=== PATIENT | female | born 1950 | race Two or more races ===

== ENCOUNTER → 2024-11-28 | Outpatient (CLI) | payer OTHER, MEDICAID ==
[~2024-11-28] MED LIST: ALBUTEROL SULF 2.5 MG/0.5ML(0.5%) NEB SOLN ONE; ASPI-498 OR; ATOR-507 PO; BACL10TA PO; DRON400T PO; DULO30CA PO; ERGO500086 PO; FURO1TAB31 PO; LEVO25TA6 PO; METF-370 PO; PANT40TA2 PO; POTA-180 PO; SACU1TAB PO
== END | disposition home or self-care (01) ==
LOC: RT 10:32
PROVIDERS: ATTEND Internal Medicine Pulmonary Disease
DX: J84.10 Pulmonary fibrosis, unspecified (principal); R06.09 Other forms of dyspnea
CPT/HCPCS: 94060; 94618; 94727; 94729

== ENCOUNTER 2025-04-25 20:21 | Inpatient (IN) | payer OTHER, MEDICAID ==
[~2025-04-25] VITALS: Ht 149.9 cm; Wt 57.5 kg
[~2025-04-25 20:21] MED LIST changes: -ALBUTEROL SULF 2.5 MG/0.5ML(0.5%) NEB SOLN ONE
--- NOTE | 2025-04-25 20:48 | ED.PDOC ---
HPI Comments 74-year-old female with a history of chronic respiratory failure due to COVID related lung disease on 2 L home O2, diabetes, thyroid disease, osteoporosis, hypertension, dyslipidemia and PA, referred by urgent care for evaluation of chest pain, shortness of breath and cough that started around 15 30 today, associated with low-grade fever. Pain is localized to the retrosternal area, described as dull/pressure-like and sharp when coughing, associated with shortness of breath, dyspnea on exertion, and oxygen saturation of 87% at urgent care. Patient denies sick contacts, nausea, vomiting, diaphoresis or edema. She states she was tested for COVID at the urgent care and was told the test was negative. Chief Complaint: Chest Pain Time Seen by MD: 20:45 Primary Care Provider: PERNELL Reviewed Notes: Nurses Notes, Medications, Allergies Allergies: Coded Allergies: Ceftriaxone (Unverified Allergy, Severe, 07/24/24) Codeine (Unverified Allergy, Severe, 07/24/24) Levofloxacin (Unverified Allergy, Severe, 07/24/24) Home Meds Reported Medications Levothyroxine Sodium (Levothyroxine Sodium) 25 Mcg Tab, 75 MCG PO QAM for 90 Days, #90 07/27/24 Sacubitril-Valsartan (Entresto 24-26 mg) 1 Tab Tab, 1 TAB PO DAILY for 90 Days, #85 07/27/24 Dronedarone Hydrochloride (Multaq) 400 Mg Tab, 1 TAB PO BID for 90 Days, #180 07/27/24 Duloxetine Hcl (Cymbalta) 30 Mg Cap, 1 CAP PO DAILY for 90 Days, #90 07/27/24 Ergocalciferol (Vitamin D (Ergocalciferol) 50,000 Unit Cap, 1 CAP PO QWEEKLY for 84 Days, #12 07/27/24 Pantoprazole Sodium Sesquihydr (Protonix) 40 Mg Tab, 1 TAB PO DAILY for 90 Days, #90 07/27/24 Metformin Hydrochloride (Metformin Hcl) 500 Mg Tab, 1 TAB PO BID for 90 Days, #180 07/27/24 Aspirin (ASPIRIN 81) 81 Mg Tab, 81 MG OR, TAB 07/25/24 Furosemide (Lasix) 40 Mg Tab, 40 MG PO for 1 Day, TAB 07/25/24 Baclofen (Baclofen) 10 Mg Tab, 10 MG PO Q8HP PRN for FOR CHEST PAIN for 30 Days, MG 07/25/24 Atorvastatin Calcium (Lipitor) 40 Mg Tab, 40 MG PO for 1 Day, TAB 07/25/24 Potassium Chloride (Potassium Chloride ER) 20 Meq Tab, 20 MEQ PO for 1 Day, TAB 07/25/24 Information Source: Patient, Relative (Child) Mode of Arrival: Ambulatory Severity: Moderate Timing: Hours Duration: Since onset Prehospital treatment: None Location: Substernal Radiation: No Radiation Onset: At Rest Cardiac Risk Factors: Diabetes PE Risk Factors: None History of: None Modifying Factors: Nothing Associated Signs and Symptoms: SOB Past Medical History PAST MEDICAL HISTORY: Angina, Arthritis, CHF, CVA, DM, High Lipids, HTN, PA, Thyroid Past Medical History (Other): Chronic respiratory failure due to COVID pneumonia Surgical History: Appendectomy, Cholecystectomy Surgical History (Other): RIGHT KNEE REPLACEMENT [employer]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 History: Denies all [employer]ATIONAL [employer]OVER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 Hx Family History Family History: Reviewed,noncontributory to illness, Unknown Social History Smoker: Non-Smoker Alcohol: Denies ETOH Use Drugs: Denies Drug Use Lives In: Home Constitutional: reports: fever; denies: chills, diaphoresis, fatigue, malaise, sweats, weakness, others EENTM: reports: nose congestion; denies: blurred vision, double vision, ear bleeding, ear discharge, ear drainage, ear pain, ear ringing, eye pain, eye redness, hearing loss, mouth pain, mouth swelling, nasal discharge, nose bleeding, nose pain, photophobia, tearing, throat pain, throat swelling, voice changes, others Respiratory: reports: cough, shortness of breath; denies: hemoptysis, orthopnea, SOB at rest, SOB with excertion, stridor, wheezing, others Cardiovascular: reports: chest pain; denies: dizzy spells, diaphoresis, Dyspnea on exertion, edema, irregular heart beat, left arm pain, lightheadedness, palpitations, PND, syncope, others Gastrointestinal: denies: abdomen distended, abdominal pain, blood streaked bowels, constipated, diarrhea, dysphagia, difficulty swallowing, hematemesis, melena, nausea, poor appetite, poor fluid intake, rectal bleeding, rectal pain, vomiting, others Genitourinary: denies: abnormal vagina bleeding, burning, dyspareunia, dysuria, flank pain, frequency, hematuria, incontinence, pain, , vagina discharge, urgency, others Neurological: denies: dizziness, fainting, headache, left sided numbness, left sided weakness, numbness, paresthesia, pre-existing deficit, right sided numbness, right sided weakness, seizure, speech problems, tingling, tremors, weakness, others Musculoskeletal: denies: back pain, gout, joint pain, joint swelling, muscle pain, muscle stiffness, neck pain, others Integumetry: denies: bruises, change in color, change in hair/nails, dryness, laceration, lesions, lumps, rash, wounds, others Allergic/Immunocompromised: denies: Difficulty Healing, Frequent Infections, Hives, Itching, others Hematologic/Lymphatic: denies: anemia, blood clots, easy bleeding, easy bruising, swollen glands, others Endocrine: denies: excessive hunger, excessive sweating, excessive thirst, excessive urination, flushing, intolerance to cold, intolerance to heat, unexplained weight gain, unexplained weight loss, others Psychiatric: denies: anxiety, bipolar disorder, depression, hopeless, panic disorder, schizophrenia, sleepless, suicidal, others All Other Systems: Reviewed and Negative Physical Exam General Appearance: Mild Distress HEENT: Other (Pupils and face symmetric. Moist mucous membranes.) Neck: Full Range of Motion, Normal Inspection Respiratory: Decreased Breath Sounds, No Accessory Muscle Use, Respiratory Distress (Mildly tachypneic) Cardiovascular: No Edema, No Murmur, Tachycardia Breast Exam: Deferred Gastrointestinal: Non Tender, Soft Genitalia: Deferred Pelvic: Deferred Rectal: Deferred Extremities: Normal inspection, Normal range of motion, Non-tender, No pedal edema Neurologic: Alert (Oriented x4), Normal Affect, Normal Mood, Other (Ambulatory. No gross focal deficit.) Cerebellar Function: NOT DONE Reflexes: NOT DONE Skin: Dry, Normal Color, Warm Lymphatic: NOT DONE EKG EKG : Comments Sinus rhythm, rate 97, normal intervals, left axis deviation, old inferior infarct, no ST/T change. Was a procedure done? Was a procedure done?: No CP Differential Dx Differential Diagnosis: Angina, PA, Pulmonary Embolus Differential Diagnosis: CHF Differential Diagnosis: Chest Wall Pain, Esophageal reflux/spasm, Gastritis, Pericarditis, Pneumonia, Other (Bronchitis, asthma/COPD, among others) X-Ray, Labs, Meds, VS Vital Signs Date Time Temp Pulse Resp B/P (MAP) Pulse Ox O2 Delivery O2 Flow Rate FiO2 04/25/25 20:42 97 04/25/25 20:24 99.9 111 20 167/76 98 99.9 Lab Test 04/25/25 20:50 Range/Units White Blood Count 11.1 H 4.4-10.8 10^3/uL Red Blood Count 4.64 4.0-5.20 10^6/uL Hemoglobin 13.7 12.2-16.2 g/dL Hematocrit 41.0 36.0-46.0 % Mean Corpuscular Volume 88.4 80.0-100.0 fL Mean Corpuscular Hemoglobin 29.5 28.0-32.0 pg Mean Corpuscular Hemoglobin Concent 33.4 32.0-36.0 g/dL Red Cell Distribution Width 14.1 11.8-14.3 % Platelet Count 182 140-450 10^3/uL Mean Platelet Volume 8.9 6.9-10.8 fL Neutrophils (%) (Auto) 66.2 37.0-80.0 % Lymphocytes (%) (Auto) 19.1 10.0-50.0 % Monocytes (%) (Auto) 9.2 0.0-12.0 % Eosinophils (%) (Auto) 4.4 0.0-7.0 % Basophils (%) (Auto) 1.1 0.0-2.0 % Neutrophils # (Auto) 7.4 1.6-8.6 10 ^3/uL Lymphocytes # (Auto) 2.1 0.4-5.4 10 ^3/uL Monocytes # (Auto) 1.0 0-1.3 10 ^3/uL Eosinophils # (Auto) 0.5 0-0.8 10 ^3/uL Basophils # (Auto) 0.1 0-0.2 10 ^3/uL Nucleated Red Blood Cells 0.0 % Sodium Level 140 136-145 mmol/L Potassium Level 5.0 3.5-5.1 mmol/L Chloride Level 105 98-107 mmol/L Carbon Dioxide Level 26 20-31 mmol/L Anion Gap 9 5-15 Blood Urea Nitrogen 13 9-23 mg/dL Creatinine 0.76 0.550-1.02 mg/dL Glomerular Filtration Rate Calc 81 >90 mL/min BUN/Creatinine Ratio 17.1 10.0-20.0 Serum Glucose 102 74-106 mg/dL Calcium Level 8.7 8.7-10.4 mg/dL Troponin I High Sensitivity 3 L </=34 ng/L B-Type Natriuretic Peptide 30.81 0-100 pg/mL Current Medications Medications (Trade) Dose Ordered Sig/Page Route Start Time Stop Time Status Last Admin Albuterol (Ventolin Medneb) 5 mg ONCE ONCE NEB 04/25/25 21:00 04/25/25 21:01 DC 04/25/25 21:34 Ipratropium Addison (Atrovent Medneb) 0.5 mg ONCE ONCE NEB 04/25/25 21:00 04/25/25 21:01 DC 04/25/25 21:35 Methylprednisolone Sodium Succinate (Solu Medrol) 125 mg ONCE ONCE IV 04/25/25 21:00 04/25/25 21:01 DC 04/25/25 21:46 Aspirin 325 mg ONCE ONCE PO 04/25/25 21:00 04/25/25 21:01 DC 04/25/25 21:46 Acetaminophen/ Hydrocodone Bitart ([place] 5/325MG Tab) 1 tab ONCE ONCE PO 04/25/25 21:00 04/25/25 21:01 DC 04/25/25 21:46 PROCEDURE(s): CXRP - CHEST PORTABLE REASON: cp ORDER NUMBER(s): [id number], ACCESSION NUMBER(s): [id number] CHEST RADIOGRAPH Indication: cp Technique: Single frontal view of the chest was obtained Comparison: CT CHEST WITHOUT CONTRAST on DOS: 07/27/24, XY CHEST PORTABLE on DOS: 07/24/24, CXR2 on DOS: 06/16/22 FINDINGS: Lines and Tubes: None Lungs: Bronchovascular crowding due to low lung volumes with mild diffuse interstitial prominence. Pleura: No effusion. No pneumothorax. Cardiomediastinal contours: Heart size is within normal limits moderate athero sclerotic calcification and uncoiling of the aorta. Bones: No acute osseous abnormality. IMPRESSION: Diffuse interstitial prominence which may be from fibrotic changes when correlated with CT chest of Underlying infectious process can not be ex cluded. X-Ray, Labs, Meds, VS Comment 74-year-old female with a history of chronic respiratory failure due to COVID related lung disease on 2 L home O2, diabetes, thyroid disease, osteoporosis, hypertension, dyslipidemia and PA, referred by urgent care for evaluation of chest pain, shortness of breath, dyspnea on exertion and low-grade fever Vitals remarkable for temperature 99.9, heart rate 111, BP 167/76 Exam remarkable for mild respiratory distress, diminished breath sounds, tachycardia Rhythm strip independently interpreted by me: Sinus rhythm, rate 97, no ectopy. Chest x-ray IMPRESSION: Diffuse interstitial prominence which may be from fibrotic changes when correlated with CT chest of Underlying infectious process can not be excluded. CBC remarkable for WBC 11.1, basic metabolic panel, BNP and troponin unremarkable. Lactate pending. Patient treated with the following in the ED: Albuterol 5 mg/Atrovent 0.5 mg nebulized, Solu-Medrol 125 mg IV, Zosyn 4.5 g IV On re-evaluation, respiratory status has improved. Patient is saturating normally on 2 L nasal cannula. Plan is to admit the patient for IV antibiotics and respiratory support as needed. Time of 1ST Reevaluation: 21:15 Reevaluation 1ST: Unchanged Patient Education/Counseling: Diagnosis, Treatment Family Education/Counseling: Diagnosis, Treatment SEPSIS Sepsis Screen Date sepsis recognized/suspect: Apr 25, 2025 Time Sepsis recognized/suspect: 2030 Recent Procedure: No On Antibiotic Therapy: No Respiratory Rate >20: No Heart Rate >90: Yes Temp<36 C (96.8 F) or >38.3 C: No SBP <90 or MAP <65 mmHG: No New Acute Mental Status Change: No Is the patient on CPAP, BIPAP,: No SEPSIS EXCLUSION NOTE: Sepsis Exclusion Note: Patient presents with SIRS criteria, but the SIRS response is attributed to [shortness of breath and pain ], not sepsis. Sepsis bundle is not initiated at this time, due to this reason. Further management will focus on the treatment of the above condition (s). Physician Orders Electrocardigram (04/25/25 20:24) Chest Portable (04/25/25 20:35) Urinalysis (04/25/25 20:35) Troponin-I Hs (04/25/25 21:35) Troponin-I Hs (04/25/25 23:35) Rapid Influenza A&B (04/25/25 21:29) Covid19 Antigen Heydi (04/25/25 ) Vital Signs Date Time Temp Pulse Resp B/P (MAP) Pulse Ox O2 Delivery O2 Flow Rate FiO2 04/25/25 20:42 97 04/25/25 20:24 99.9 111 20 167/76 98 99.9 Laboratory Tests Test 04/25/25 20:50 White Blood Count 11.1 10^3/uL (4.4-10.8) H Medications Medications Dose Ordered Sig/Page Route Start Time Stop Time Status Last Admin Dose Admin Acetaminophen/ Hydrocodone Bitart 1 tab ONCE ONCE PO 04/25/25 21:00 04/25/25 21:01 DC 04/25/25 21:46 Albuterol 5 mg ONCE ONCE NEB 04/25/25 21:00 04/25/25 21:01 DC 04/25/25 21:34 Aspirin 325 mg ONCE ONCE PO 04/25/25 21:00 04/25/25 21:01 DC 04/25/25 21:46 Ipratropium Addison 0.5 mg ONCE ONCE NEB 04/25/25 21:00 04/25/25 21:01 DC 04/25/25 21:35 Methylprednisolone Sodium Succinate 125 mg ONCE ONCE IV 04/25/25 21:00 04/25/25 21:01 DC 04/25/25 21:46 Departure 1 Departure Time of Disposition: 21:58 Impression: Primary Impression: Chest pain with high risk for cardiac etiology Additional Impressions: Pneumonia [id number] respiratory failure Disposition: ADMITTED INPATIENT Admit to: Tele Condition: Guarded Critical Care Note Critical Care Time?: No Stability Stability form required: No Heart Score Heart Score: Heart Score Response (Comments) Value History Moderate Suspicious 1 EKG Normal 0 Age >65 2 Risk Factors >3 or Hx ASHD 2 Troponin Normal limit 0 Total 5 I personally scribed for RENU MATIAS MD ([email or web address]) on 04/25/25 at 20:48. Electronically submitted by Farida Glaser ([email or web address]). I personally scribed for RENU MATIAS MD ([email or web address]) on 9/2/25 at 20:49. Electronically submitted by Farida Glaser ([email or web address]). RENU MATISA MD Apr 25, 2025 20:48
[2025-04-25 21:12] LABS: Hematocrit 41.0 % (36.0-46.0); Hemoglobin 13.7 g/dL (12.2-16.2); Mean Corpuscular Hemoglobin 29.5 pg (28.0-32.0); Mean Corpuscular Volume 88.4 fL (80.0-100.0); Nucleated Red Blood Cells % 0.0 %
[2025-04-25 21:16] LABS: Chloride 105 mmol/L (98-107); Potassium 5.0 mmol/L (3.5-5.1); Sodium 140 mmol/L (136-145)
[2025-04-25 21:17] LABS: Anion Gap 9 (5-15); Calcium 8.7 mg/dL (8.7-10.4); Carbon Dioxide 26 mmol/L (20-31)
[2025-04-25 21:22] LABS: BUN/Creatinine Ratio 17.1 (10.0-20.0); Blood Urea Nitrogen 13 mg/dL (9-23); Glucose 102 mg/dL (74-106)
[2025-04-25] MEDS: ALBUTEROL SULF 2.5 MG/0.5ML(0.5%) NEB SOLN NEB ONE (21:34)
[2025-04-25] MEDS: IPRATROPIUM BROM 0.5 MG/2.5ML INH SOL NEB ONE (21:35)
--- NOTE | 2025-04-25 21:40 | DVH ---
CHEST RADIOGRAPH Indication: cp Technique: Single frontal view of the chest was obtained Comparison: CT CHEST WITHOUT CONTRAST on DOS: 07/27/24, XY CHEST PORTABLE on DOS: 07/24/24, CXR2 on DOS : 06/16/22 FINDINGS: Lines and Tubes: None Lungs: Bronchovascular crowding due to low lung volumes with mild diffuse interstitial prominence. Pleura: No effusion. No pneumothorax. Cardiomediastinal contours: Heart size is within normal limits moderate atherosclerotic calcification and uncoiling of the aorta. Bones: No acute osseous abnormality. IMPRESSION: Diffuse interstitial prominence which may be from fibrotic changes when correlated with CT chest of 1 Underlying infectious process can not be excluded.
[2025-04-25] MEDS: methylPREDNISolone SOD SUCC 125 MG/2 ML VL IV ONE (21:46)
[2025-04-25] MEDS: HYDROcodone-ACET 5/325MG TAB PO ONE (21:46)
[2025-04-25] MEDS ORDERED: ONDANSETRON HCL 4 MG/2 ML VIAL IV PRN (22:45)
[2025-04-25] MEDS ORDERED: DOCUSATE SOD 100 MG CAP PO PRN (22:45)
[2025-04-25] MEDS ORDERED: NITROGLYCERIN 0.4 MG SL TAB SL PRN (22:45)
[2025-04-25] MEDS ORDERED: MORPHINE SULFATE INJ 2 MG/ml SYRG IV PRN ×2 (22:45)
[2025-04-26] VITALS (8 sets, daily range): BP systolic 120–140; BP diastolic 51–79; PULSE 80–97; RESP 16–20; TEMP 97.8–98.2; O2SAT 95–97
[2025-04-26 04:25] LABS: COVID19 ANTIGEN SOFIA FIA NEGATIVE (NEGATIVE)
[2025-04-26] MEDS ORDERED: METF-372 PO (05:30)
[2025-04-26] MEDS ORDERED: DULO1CAP5 PO (05:30)
[2025-04-26] MEDS ORDERED: ASPI81CH59 PO (05:30)
[2025-04-26] MEDS ORDERED: PANT40T PO (05:30)
[2025-04-26] MEDS ORDERED: FURO40TA4 PO (05:30)
[2025-04-26] MEDS ORDERED: ATOR40TA52 PO (05:30)
[2025-04-26] MEDS ORDERED: EMPA1TAB3 PO (05:30)
[2025-04-26] MEDS ORDERED: LEVO75TA6 PO (05:30)
[2025-04-26] MEDS ORDERED: HYDR-4798 PO (05:40)
[2025-04-26] MEDS ORDERED: BACL20TA PO (05:41)
--- NOTE | 2025-04-26 06:23 | DVHHPRES ---
History of Present Illness Resident Creating Document: FILOMENA WHITE RESIDENT History of Present Illness ShanaKarolina raines a 74-year-old female with past medical history of chronic respiratory failure with 2 L oxygen at home, Angina, Arthritis, CHF, CVA, DM, hyperlipidemia, HTN, [place], hypothyroidism, the ED with chief complaints of shortness of breath and cough that started yesterday, and pressure-like, salt when coughing, constant 10/10 chest pain mostly radiating to the back and left shoulder, associated with low-grade fever and feels fatigued, tired, dizzy since yesterday. Patient has lost of appetite, states that she lost lb in the last 5 months. Patient states that she had high blood pressure at home, was worried and went to urgent care where they told her to come to the ED. Patient was tested for COVID and was told was negative. Patient also complained of lower back pain, headache. Past surgical history: Appendicectomy, cholecystectomy, right knee replacement, left arm surgery Family history: Reviewed noncontributory Personal history: Denies smoking, drinking, drug use Lives with: Family PCP: [place] Review of Systems Constitutional: Yes: Weakness Eyes: No: Pain, Vision change, Conjunctivae inflammation, Eyelid inflammation, Other, Redness ENT: No: Ear pain, Ear discharge, Nose pain, Nose discharge, Nose congestion, Mouth pain, Mouth swelling, Throat pain, Throat swelling, Other Respiratory: Cough, Shortness of breath; No: Dry, SOB with excertion, Wheezing, Hemoptysis, Pleuritic Pain, Sputum, Wheezing, Other Cardiovascular: Chest Pain; No: Palpitations, Orthopnea, Paroxysmal Noc. Dyspnea, Edema, Lt Headedness, Other Gastrointestinal: No: Nausea, Vomiting, Abdominal Pain, Diarrhea, Constipation, Melena, Hematochezia, Other Genitourinary: No Dysuria, No Frequency, No Incontinence, No Hematuria, No Retention, No Other Musculoskeletal: No: other, neck pain, shoulder pain, arm pain, back pain, hand pain, leg pain, foot pain Skin: No: Rash, Lesions, Jaundice, Bruising, Other Neurological: No: Weakness, Numbness, Incoordination, Change in speech, Confusion, Seizures, Other Allergies: Coded Allergies: Ceftriaxone (Unverified Allergy, Severe, 07/24/24) Codeine (Unverified Allergy, Severe, 07/24/24) Levofloxacin (Unverified Allergy, Severe, 07/24/24) Medications Current Medications Medications Dose Ordered Sig/Page Route Start Time Stop Time Status Last Admin Dose Admin Acetaminophen/ Hydrocodone Bitart 1 tab Q4HP PRN PO 04/25/25 22:45 Ondansetron HCl 4 mg Q4HP PRN IV 04/25/25 22:45 Docusate Sodium 100 mg BIDPRN PRN PO 04/25/25 22:45 Morphine Sulfate 2 mg Q4HPRN PRN IV 04/25/25 22:45 Nitroglycerin 0.4 mg Q5MINP PRN SL 04/25/25 22:45 Morphine Sulfate 2 mg Q30M PRN IV 04/25/25 22:45 Aspirin 81 mg DAILY PO 04/26/25 10:00 Furosemide 40 mg DAILY PO 04/26/25 10:00 Levothyroxine Sodium 75 mcg QAM PO 04/26/25 07:00 Pantoprazole Sodium 40 mg QAM PO 04/26/25 07:00 Sacubitril/ Valsartan 1 tab DAILY PO 04/26/25 10:00 Atorvastatin Calcium 40 mg HS PO 04/26/25 22:00 Exam Vital Signs Vital Signs Date Time Temp Pulse Resp B/P (MAP) Pulse Ox O2 Delivery O2 Flow Rate FiO2 04/26/25 05:05 88 18 97 Nasal Cannula* 2 28 04/25/25 21:52 99.0 152/59 (90) 99.0 Exam General: Patient alert and oriented in person, place and time. Patient following commands. In moderate distress HEENT: Normocephalic, atraumatic, moist mucous membranes Respiratory/pulmonary: Crackles on the right side, decreased breath sounds Cardiovascular: Normal heart sounds S1 and S2 with no associated murmurs Abdomen: Abdomen nondistended, there is no pain to palpation in any of the abdominal quadrants, no palpable masses. Extremities: There is no peripheral edema present at the lower extremities. Peripheral Pulses: 3+ Radial (R). 3+ Radial (L). 3+ Dorsalis pedis (R). 3+ Dorsalis pedis(L) Skin: No rashes or pruritus, there is no sacral edema present at this time. Neurological: Intact cranial nerves with no focal neurologic deficits Psych, mood: Normal Labs/Xrays Labs Test 04/26/25 03:00 04/26/25 02:46 04/25/25 22:19 04/25/25 21:53 Range/Units Influenza Type A Antigen Negative Negative Influenza Type B Antigen Negative Negative SARS-CoV-2 Antigen (Rapid) Negative NEGATIVE POC Glucose 197 H 70-106 mg/dl Lactic Acid Level 1.3 0.4-2.0 mmol/L Troponin I High Sensitivity 3 L </=34 ng/L Test 04/25/25 20:50 Range/Units White Blood Count 11.1 H 4.4-10.8 10^3/uL Red Blood Count 4.64 4.0-5.20 10^6/uL Hemoglobin 13.7 12.2-16.2 g/dL Hematocrit 41.0 36.0-46.0 % Mean Corpuscular Volume 88.4 80.0-100.0 fL Mean Corpuscular Hemoglobin 29.5 28.0-32.0 pg Mean Corpuscular Hemoglobin Concent 33.4 32.0-36.0 g/dL Red Cell Distribution Width 14.1 11.8-14.3 % Platelet Count 182 140-450 10^3/uL Mean Platelet Volume 8.9 6.9-10.8 fL Neutrophils (%) (Auto) 66.2 37.0-80.0 % Lymphocytes (%) (Auto) 19.1 10.0-50.0 % Monocytes (%) (Auto) 9.2 0.0-12.0 % Eosinophils (%) (Auto) 4.4 0.0-7.0 % Basophils (%) (Auto) 1.1 0.0-2.0 % Neutrophils # (Auto) 7.4 1.6-8.6 10 ^3/uL Lymphocytes # (Auto) 2.1 0.4-5.4 10 ^3/uL Monocytes # (Auto) 1.0 0-1.3 10 ^3/uL Eosinophils # (Auto) 0.5 0-0.8 10 ^3/uL Basophils # (Auto) 0.1 0-0.2 10 ^3/uL Nucleated Red Blood Cells 0.0 % Sodium Level 140 136-145 mmol/L Potassium Level 5.0 3.5-5.1 mmol/L Chloride Level 105 98-107 mmol/L Carbon Dioxide Level 26 20-31 mmol/L Anion Gap 9 5-15 Blood Urea Nitrogen 13 9-23 mg/dL Creatinine 0.76 0.550-1.02 mg/dL Glomerular Filtration Rate Calc 81 >90 mL/min BUN/Creatinine Ratio 17.1 10.0-20.0 Serum Glucose 102 74-106 mg/dL Calcium Level 8.7 8.7-10.4 mg/dL B-Type Natriuretic Peptide 30.81 0-100 pg/mL SEPSIS Sepsis Screen Date sepsis recognized/suspect: Apr 25, 2025 Time Sepsis recognized/suspect: 2030 Recent Procedure: No On Antibiotic Therapy: No Respiratory Rate >20: No Heart Rate >90: Yes Temp<36 C (96.8 F) or >38.3 C: No SBP <90 or MAP <65 mmHG: No New Acute Mental Status Change: No Is the patient on CPAP, BIPAP,: No Physician Orders Admit (04/25/25 22:36) Allergies (04/25/25 22:36) Code Status (04/25/25:36) Oxygen Per Hour (04/25/25:36) Hydrocodone-Acet 5/325mg Tab ([place] 5/32 (04/25/25 22:45) Ondansetron Hcl (Zofran) (04/25/25 22:45) Docusate Sodium Capsule (Colace Capsule) (04/25/25 22:45) Complete Blood Count (04/26/25 04:00) Comprehensive Metabolic Panel (04/26/25 04:00) Condition: Serious (04/25/25 22:36) Bedrest With Bathroom Privileg (04/25/25 22:36) Morphine Sulfate Injection (04/25/25 22:45) Nitroglycerin Sublingual (Ntrostat Subli (04/25/25 22:45) Morphine Sulfate Injection (04/25/25 22:45) Oxygen By Nasal Cannula (04/25/25:36) Stat Ekg For Chest Pain (04/25/25:36) Notify Of Changes From Base (04/25/25 22:36) Application Security Engineer For 24 Hours (04/25/25 22:36) Emergency Dysrhythmia Protocol (04/25/25 22:36) Rhythm Strips Once Every Shift (04/25/25 22:36) Prothrombin Time W/ Inr (04/26/25 05:58) Drug Screen (04/26/25 05:58) Hemoglobin A1c (04/26/25 05:58) Hepatic Panel (04/26/25 05:58) Lipid Panel (04/26/25 05:58) Thyroid Stimulating Hormone (04/26/25 05:58) Cardiac Diet-2gna,Lofat,Lochol (04/26/25 Breakfast) Aspirin Enteric Coated Tablet (Ecotrin E (04/26/25 10:00) Furosemide Tablet (Lasix Tablet) (04/26/25 10:00) Levothyroxine Tablet (Synthroid Tablet) (04/26/25 07:00) Pantoprazole Tablet (Protonix Tablet) (04/26/25 07:00) Sacubitril-Valsartan (Entresto 24-26 Mg (04/26/25 10:00) Atorvastatin (Lipitor) (04/26/25 22:00) Erythrocyte Sedimentation Rate (04/26/25 06:17) C-Reactive Protein (04/26/25 06:17) D-Dimer (04/26/25 06:17) Echo 2d Mode Cardiac Dop (04/26/25 06:17) Vital Signs Date Time Temp Pulse Resp B/P (MAP) Pulse Ox O2 Delivery O2 Flow Rate FiO2 04/26/25 05:05 88 18 97 Nasal Cannula* 2 28 Laboratory Tests Test 04/25/25 20:50 04/25/25 22:19 White Blood Count 11.1 10^3/uL (4.4-10.8) H Lactic Acid Level 1.3 mmol/L (0.4-2.0) Medications Medications Dose Ordered Sig/Page Route Start Time Stop Time Status Last Admin Dose Admin Acetaminophen/ Hydrocodone Bitart 1 tab ONCE ONCE PO 04/25/25 21:00 04/25/25 21:01 DC 04/25/25 21:46 1 TAB Albuterol 5 mg ONCE ONCE NEB 04/25/25 21:00 04/25/25 21:01 DC 04/25/25 21:34 5 MG Aspirin 325 mg ONCE ONCE PO 04/25/25 21:00 04/25/25 21:01 DC 04/25/25 21:46 325 MG Ipratropium [place] 0.5 mg ONCE ONCE NEB 04/25/25 21:00 04/25/25 21:01 DC 04/25/25 21:35 0.5 MG Methylprednisolone Sodium Succinate 125 mg ONCE ONCE IV 04/25/25 21:00 04/25/25 21:01 DC 04/25/25 21:46 125 MG Assessment/Plan Assessment/Plan # Acute on chronic respiratory failure # SIRS likely due to Gram positive/Gram-negative pneumonia: Azithromycin # HFrEF # Chronic respiratory failure due to COVID pneumonia: On 2 L oxygen at home # Essential hypertension: Continue home medication # history of Stroke # history of osteoporosis , osteoarthritis # Diabetes mellitus HbA1c # History of hypothyroidism: Continue home meds PPI prophylaxis: Pantoprazole 40 mg DVT prophylaxis: Not indicated Goals of care addressed with the patient for more than 35 minutes: Full code status Case discussed with Dr. Castillo , patient and nurse Plan discussed with: Patient My Orders Orders - FILOMENA WHITE RESIDENT Procedure Category Date Status Time Admit ADMIT 04/25/25 Transmitted 22:36 Allergies AAMIR 04/25/25 In Process 22:36 Code Status CODE 04/25/25 Transmitted 22:36 Oxygen Per Hour RT 04/25/25 Transmitted 22:36 Hydrocodone-Acet PHA 04/25/25 In Process 5/325mg Tab ([place] 22:45 Ondansetron Hcl PHA 04/25/25 In Process (Zofran) 22:45 Docusate Sodium PHA 04/25/25 In Process Capsule (Colace 22:45 Complete Blood Count LAB 04/26/25 Logged 04:00 Comprehensive LAB 04/26/25 Logged Metabolic Panel 04:00 Condition: Serious AAMIR 04/25/25 In Process 22:36 Bedrest With Bathroom AAMIR 04/25/25 In Process Privileg 22:36 Morphine Sulfate PHA 04/25/25 In Process Injection 22:45 Nitroglycerin PHA 04/25/25 In Process Sublingual (Ntrostat 22:45 Morphine Sulfate PHA 04/25/25 In Process Injection 22:45 Oxygen By Nasal RT 04/25/25 Transmitted Cannula 22:36 Stat Ekg For Chest AAMIR 04/25/25 In Process Pain 22:36 Notify Of Changes AAMIR 04/25/25 In Process From Base 22:36 Application Security Engineer For AAMIR 04/25/25 In Process 24 Hours 22:36 Emergency Dysrhythmia AAMIR 04/25/25 In Process Protocol 22:36 Rhythm Strips Once AAMIR 04/25/25 In Process Every Shift 22:36 Prothrombin Time W/ LAB 04/26/25 Logged INR 05:58 Drug Screen LAB 04/26/25 Logged 05:58 Hemoglobin A1c LAB 04/26/25 Logged 05:58 Hepatic Panel LAB 04/26/25 Logged 05:58 Lipid Panel LAB 04/26/25 Logged 05:58 Thyroid Stimulating LAB 04/26/25 Logged Hormone 05:58 Cardiac DIET 04/26/25 Transmitted Diet-2gna,Lofat,Lochol Breakfast Aspirin Enteric PHA 04/26/25 In Process Coated Tablet 10:00 Furosemide Tablet PHA 04/26/25 In Process (Lasix Tablet) 10:00 Levothyroxine Tablet PHA 04/26/25 In Process (Synthroid Tablet) 07:00 Pantoprazole Tablet PHA 04/26/25 In Process (Protonix Tablet) 07:00 Sacubitril-Valsartan PHA 04/26/25 In Process (Entresto 24-26 Mg 10:00 Atorvastatin (Lipitor) PHA 04/26/25 In Process 22:00 Erythrocyte LAB 04/26/25 Logged Sedimentation Rate 06:17 C-Reactive Protein LAB 04/26/25 Logged 06:17 D-Dimer LAB 04/26/25 Logged 06:17 Echo 2d Mode Cardiac US 04/26/25 Logged DOP 06:17 Date of Service: Apr 26, 2025 Billing Provider: FILOMENA WHITE Common Visit Codes: [id number] INP/OBS CARE (HIGH) Secondary Visit Codes: [id number] CARE PLAN 30 MINUTES FILOMENA WHITE Apr 26, 2025 06:23
[2025-04-26] MEDS: LEVOTHYROXINE SODIUM 25 MCG TAB PO SCH (06:33)
[2025-04-26] MEDS: PANTOPRAZOLE 40 MG TAB PO SCH (06:33)
[2025-04-26 07:59] LABS: Hematocrit 40.1 % (36.0-46.0); Hemoglobin 13.7 g/dL (12.2-16.2); Mean Corpuscular Hemoglobin 30.0 pg (28.0-32.0); Mean Corpuscular Volume 87.9 fL (80.0-100.0); Nucleated Red Blood Cells % 0.0 %
[2025-04-26 08:02] LABS: Alanine Aminotransferase 19 U/L (7-40); Albumin 4.1 g/dL (3.2-4.8); Alkaline Phosphatase 69 U/L (46-116); Anion Gap 10 (5-15); BUN/Creatinine Ratio 20.0 (10.0-20.0); Bilirubin, Total 0.4 mg/dL (0.2-1.0); Blood Urea Nitrogen 15 mg/dL (9-23); Calcium 8.7 mg/dL (8.7-10.4); Carbon Dioxide 24 mmol/L (20-31); Chloride 104 mmol/L (98-107); Potassium 4.5 mmol/L (3.5-5.1); Sodium 138 mmol/L (136-145); Total Protein 7.3 g/dL (5.7-8.2)
[2025-04-26 08:05] LABS: Glucose 180 mg/dL (74-106)
[2025-04-26 08:07] LABS: INR 1.07 (0.9-1.15); Prothrombin Time 11.3 sec (9.3-11.8)
[2025-04-26 08:17] LABS: Alanine Aminotransferase 18.0 U/L (7-40); Albumin 4.1 g/dL (3.2-4.8); Alkaline Phosphatase 69.0 U/L (46-116); Bilirubin, Direct 0.1 mg/dL (<0.3); Bilirubin, Total 0.4 mg/dL (0.2-1.0); Cholesterol 145.0 mg/dL (< 200); Total Protein 7.2 g/dL (5.7-8.2); Triglycerides 80.0 mg/dL (< 150)
[2025-04-26 08:22] LABS: HDL Cholesterol 63.0 mg/dL (40-59)
[2025-04-26] MEDS: ASPirin-EC 81 mg tab PO SCH (10:05)
[2025-04-26] MEDS: SACUBITRIL-VALSARTAN 24mg/26mg TAB PO SCH (10:06)
[2025-04-26] MEDS: FUROSEMIDE 40 MG TAB PO SCH (10:06)
[2025-04-26 10:49] LABS: Urine Budding Yeast OCCASIONAL /hpf (None Seen); Urine Protein, UAD Negative (Negative)
[2025-04-26 10:59] LABS: Amphetamine Screen, Urine Neg (NEGATIVE); Barbiturate Scree,Urine Neg (NEGATIVE); Benzodiazephine Screen, Urine Neg (NEGATIVE); Cocaine Screen, Urine Neg (NEGATIVE); Opiate Scree,Urine Neg (NEGATIVE); Phencyclidine Screen, Urine Neg (NEGATIVE)
[2025-04-26 11:00] LABS: Cannabinoid Screen, Urine Neg (NEGATIVE)
--- NOTE | 2025-04-26 14:05 | ECG ---
[facility] Test Date: 2025-04-25 Test Time: 20:42:11 Pat Name: MICHELLE VILLARREAL Department: ED Room: [facility]0T B Gender: F Casing Inspector: LUPILLO : 1950 Requested By: EMERGENCY EMERGENCY Order Number: [id number] Reading MD: Napoleon Quan Measurements Intervals [place] Rate: 97 P: 62 MA: 126 QRS: -34 QRSD: 79 T: 36 QT: 320 QTc: 407 Interpretive Statements Sinus rhythm Left axis deviation Low voltage, precordial leads Electronically Signed On 04-27-2025 17:01:38 PDT by Napoleon Quan Please click the below link to view image of tracing.
[2025-04-26] MEDS ORDERED: DEXTROSE (50%) 50ML SYRG IV PRN (16:15)
[2025-04-26] MEDS ORDERED: guaiFENesin-DM 100/10mg/5ml SYR PO PRN (16:15)
[2025-04-26] MEDS: HYDROcodone-ACET 5/325MG TAB PO PRN (16:18)
[2025-04-26] MEDS: ACCU-CHEK COMFORT CURVE STRIP VI SCH (16:21)
[2025-04-26] MEDS: guaiFENesin-DM 100/10mg/5ml SYR PO PRN (16:28)
[2025-04-26] MEDS: InsuLIN REG 1unit/0.01ml Soln (100units/ml) SC SCH (16:31)
[2025-04-26] MEDS: ATORVASTATIN 20 MG TAB PO SCH (21:48)
[2025-04-27] VITALS (8 sets, daily range): BP systolic 98–117; BP diastolic 50–58; PULSE 75–105; RESP 16–20; TEMP 97.6–98.3; O2SAT 95–100
--- NOTE | 2025-04-27 11:50 | DVHPN2 ---
Subjective The patient is seen and examined at bedside. Son at bedside. The patient complained of chest pain in the middle of her chest. The patient complain of shortness for breath. The patient states she had been losing weight for two months. She lost about 9 lb. She said her development technician, Dr. Jacob about to send her for CT scan however she had not have chance to do so. Reviewed: Care Plan, H&P, Labs, Medications, Previous Orders, Radiology Changes from previous H/P or p: No Changes Eyes: No Pain, No Vision change, No Conjunctivae inflammation, No Eyelid inflammation, No Other, No Redness ENT: No Ear pain, No Ear discharge, No Nose pain, No Nose discharge, No Nose congestion, No Mouth pain, No Mouth swelling, No Throat pain, No Throat swelling, No Other Cardiovascular: Chest Pain; No Palpitations, No Orthopnea, No Paroxysmal Noc. Dyspnea, No Edema, No Lt Headedness, No Other Respiratory: Cough; No Dry; Shortness of breath; No SOB with excertion, No Wheezing, No Hemoptysis, No Pleuritic Pain, No Sputum, No Other Gastrointestinal: No Nausea, No Vomiting, No Abdominal Pain, No Diarrhea, No Constipation, No Melena, No Hematochezia, No Other Genitourinary: No Dysuria, No Frequency, No Incontinence, No Hematuria, No Retention, No Other Musculoskeletal: No other, No neck pain, No shoulder pain, No arm pain, No back pain, No hand pain, No leg pain, No foot pain Skin: No Rash, No Lesions, No Jaundice, No Bruising, No Other Objective Vitals Vital Signs Date Time Temp Pulse Resp B/P (MAP) Pulse Ox O2 Delivery O2 Flow Rate FiO2 04/27/25 09:11 104/55 04/27/25 08:00 75 04/27/25 08:00 16 Nasal Cannula* 2 28 04/27/25 05:00 97.8 100 97.8 Intake/Output Intake and Output 04/27/25 07:00 Intake Total 1600 ml Balance 1600 ml Intake Oral 1500 ml IV Total 100 ml # Voids 10 General Appearance: Alert, Oriented X3, Cooperative, No acute distress HEENT: Atraumatic, PERRLA, EOMI, Mucous membr. moist/pink Neck: Supple Lungs: Clear to auscultation, Normal air movement Cardiovascular: Regular rate, Normal S1, Normal S2, No murmurs, Gallops, Rubs Abdomen: Normal bowel sounds, Soft, No tenderness Neuro: Cranial nerves 3-12 NL Psych/Mental Status: Mental status NL Medications Current Medications Medications Dose Ordered Sig/Page Route Start Time Stop Time Status Last Admin Dose Admin Acetaminophen/ Hydrocodone Bitart 1 tab Q4HP PRN PO 04/25/25 22:45 04/26/25 16:18 1 TAB Ondansetron HCl 4 mg Q4HP PRN IV 04/25/25 22:45 Docusate Sodium 100 mg BIDPRN PRN PO 04/25/25 22:45 Morphine Sulfate 2 mg Q4HPRN PRN IV 04/25/25 22:45 Nitroglycerin 0.4 mg Q5MINP PRN SL 04/25/25 22:45 Morphine Sulfate 2 mg Q30M PRN IV 04/25/25 22:45 Aspirin 81 mg DAILY PO 04/26/25 10:00 04/27/25 09:10 81 MG Furosemide 40 mg DAILY PO 04/26/25 10:00 04/27/25 09:11 40 MG Levothyroxine Sodium 75 mcg QAM PO 04/26/25 07:00 04/27/25 06:00 75 MCG Pantoprazole Sodium 40 mg QAM PO 04/26/25 07:00 04/27/25 06:00 40 MG Sacubitril/ Valsartan 1 tab DAILY PO 04/26/25 10:00 04/27/25 09:11 1 TAB Atorvastatin Calcium 40 mg HS PO 04/26/25 22:00 04/26/25 21:48 40 MG Diagnostic Test (Pha) 1 strip ACHS 04/26/25 17:00 04/27/25 11:26 1 STRIP Insulin Human Regular ACHS SC 04/26/25 17:00 04/27/25 11:26 3 UNITS Dextrose 50 ml UD PRN IV 04/26/25 16:15 Guaifenesin/ Dextromethorphan 10 ml Q6HP PRN PO 04/26/25 16:30 04/26/25 21:54 10 ML Laboratory Results Laboratory Tests 04/26/25 07:24 Urinalysis Test 04/26/25 10:35 Urine Color Light-yellow (Yellow) Urine Clarity Clear (Clear) Urine pH 6.0 (5.0-9.0) Urine Specific [place] 1.008 (1.001-1.035) Urine Protein Negative (Negative) Urine Ketones Negative (Negative) Urine Blood Negative /uL (Negative) Urine Nitrite Negative (Negative) Urine Bilirubin Negative (Negative) Urine Urobilinogen Normal mg/dL (Negative) Urine Leukocyte Esterase Negative /uL (Negative) Urine RBC <1 /hpf (0 - 4) Urine Microscopic WBC 1 /HPF (0-5) Urine Squamous Epithelial Cells Few /hpf (<5) Urine Bacteria Few /hpf (None Seen) H Urine Yeast (Budding) Occasional /hpf (None Urine Glucose 3+ mg/dL (Normal) H Microbiology Microbiology Date/Time Source Procedure Growth Status 04/25/25 22:19 Blood Blood Culture - Preliminary NO GROWTH AFTER 24 HOURS OF INCUBATION. Resulted Labs and/or images reviewed: Labs reviewed by me Assessment/Plan Assessment/Plan # Acute on chronic respiratory failure # SIRS likely due to Gram positive/Gram-negative pneumonia: Azithromycin # HFrEF # Chronic respiratory failure due to COVID pneumonia: On 2 L oxygen at home # Essential hypertension: Continue home medication # history of Stroke # history of osteoporosis , osteoarthritis # Diabetes mellitus HbA1c # History of hypothyroidism: Continue home meds # coronary artery disease Continuing current management. The patient has cardiac history so I will consult development technician. Her development technician is Dr. Jacob. I will order a CT chest abdomen pelvis with oral and IV contrast to rule out malignancy. Per patient she had colonoscopy couple years ago and was normal. Denied any melena or bright red blood per rectum. Denied any hematemesis. Continuing with Robitussin DM PRN for cough . Continuing IV antibiotic This medical document was created using an electronic medical record system with M*[employer] flu[employer]ondu direct computerized dictation system. Although this document has been carefully reviewed, there may still be some phonetic and typographical errors. These areas are purely typographical due to imperfections of the software programs, and do not reflect any compromise in the patient's medical care. Plan discussed with: Patient, Son My Orders Orders - TITO HESS MD Procedure Category Date Status Time Glucose Blood PHA 04/26/25 In Process (Accu-Chek Comfort 17:00 Insulin R (Human) PHA 04/26/25 In Process (Insulin R) 17:00 Dextrose 50% Syringe PHA 04/26/25 In Process 16:15 Consistent DIET 04/26/25 [facility]Diabetes Dinner Guaifenesin-Dextromet PHA 04/26/25 In Process Liquid (Robitussin 16:30 * Cardiology Consult CONS 04/27/25 Transmitted 10:25 Date of Service: Apr 27, 2025 Billing Provider: TITO HESS MD Common Visit Codes: [id number] INP/OBS CARE(HIGH) TITO HESS MD Apr 27, 2025 11:50
--- NOTE | 2025-04-27 12:07 | DVHSR ---
APPROVED REPORT EXAM: Two-dimensional and M-mode echocardiogram with Doppler and color Doppler. Blood Pressure: 140/61 mmHg INDICATION r/o structural heart disease RISK FACTORS Height: 4'11", Weight: 128 DIMENSIONS LVDd3.9 (3.8-5.7cm)LA (2D)4.1 (1.9-4.0cm)Aortic Root2.7 (2.0-3.7cm) LVDs2.1 (2.5-4.0cm)LA (MM) (1.9-4.0cm)Aortic Cusp Exc1.3 (1.5-2.0cm) EF (%) 79.0 (55-70%)Rt. Atrium3.3 (1.9-4.0cm)Asc. Aorta3.2 cm IVSd0.9 (0.7-1.1cm)RV (D)3.3 (1.8-2.4cm) PWd0.7 (0.7-1.1cm) Mitral Valve MitralMitral Stenosis E wave0.82m/sMV Mean GR.mmHg A wave1.35m/sMV Peak GR.mmHg E/A ratio0.62D MVAcm2 DECEL [id number] 1/2 Timems Aortic Valve Aortic ValveAortic Stenosis V11.12m/Aron Mean GR.6mmHg V21.63m/Aron Peak GR.11mmHg LVOT Diameter1.7 (1.8-2.4cm)Doppler AVA1.56cm2 Pulmonic Valve V21.14m/s Tricuspid Valve TR Velocity2.53m/s [id number] Other Information Quality : Technically LimitedRhythm : Technically limited study due to body habitus. Conclusion lvef 65 % sigmoid septum , LVH RV enlarged, normal function left atrium enlarged moderate MAC mild to moderate tricuspid regurg mild Pulmonic regurg
--- NOTE | 2025-04-27 12:48 | DVHPN2 ---
Progress Note - Dictate Date Seen: Apr 27, 2025 Medical Necessity Reason Pt with a Central, PICC or Fol: No Subjective PT WELL KNOWN TO ME HX OF PUL FIBROSIS SIDE SIDE FAILURE COPD HTN HX OF CVA DIABETES NEUROPATHY NOW WITH RAUSCH/ SOB/ NON PRODUCTIVE COUGH NOW WITH CHEST PAIN TROPONIN NEGATIVE EF >55% RIGHT SIDED PRESSURE OVERLOAD NO HX OF UT vital signs Vital Sign Date Time Temp Pulse Resp B/P (MAP) Pulse Ox O2 Delivery O2 Flow Rate FiO2 04/27/25 09:11 104/55 04/27/25 08:00 75 04/27/25 08:00 16 Nasal Cannula* 2 28 04/27/25 05:00 97.8 100 97.8 Total Intake and Output 04/26/25 04/26/25 04/27/25 15:00 23:00 07:00 Intake Total 1100 ml 500 ml Balance 1100 ml 500 ml medications Current Medications Medications Dose Ordered Sig/Page Route Start Time Stop Time Status Last Admin Dose Admin Acetaminophen/ Hydrocodone Bitart 1 tab Q4HP PRN PO 04/25/25 22:45 04/26/25 16:18 1 TAB Ondansetron HCl 4 mg Q4HP PRN IV 04/25/25 22:45 Docusate Sodium 100 mg BIDPRN PRN PO 04/25/25 22:45 Morphine Sulfate 2 mg Q4HPRN PRN IV 04/25/25 22:45 Nitroglycerin 0.4 mg Q5MINP PRN SL 04/25/25 22:45 Morphine Sulfate 2 mg Q30M PRN IV 04/25/25 22:45 Aspirin 81 mg DAILY PO 04/26/25 10:00 04/27/25 09:10 81 MG Furosemide 40 mg DAILY PO 04/26/25 10:00 04/27/25 09:11 40 MG Levothyroxine Sodium 75 mcg QAM PO 04/26/25 07:00 04/27/25 06:00 75 MCG Pantoprazole Sodium 40 mg QAM PO 04/26/25 07:00 04/27/25 06:00 40 MG Sacubitril/ Valsartan 1 tab DAILY PO 04/26/25 10:00 04/27/25 09:11 1 TAB Atorvastatin Calcium 40 mg HS PO 04/26/25 22:00 04/26/25 21:48 40 MG Diagnostic Test (Pha) 1 strip ACHS 04/26/25 17:00 04/27/25 11:26 1 STRIP Insulin Human Regular ACHS SC 04/26/25 17:00 04/27/25 11:26 3 UNITS Dextrose 50 ml UD PRN IV 04/26/25 16:15 Guaifenesin/ Dextromethorphan 10 ml Q6HP PRN PO 04/26/25 16:30 04/26/25 21:54 10 ML laboratory and microbiology Laboratory Tests 04/26/25 07:24 Test 04/26/25 07:24 Range/Units Serum Glucose 180 H 74-106 mg/dL Problem List HX OF PUL FIBROSIS SIDE SIDE FAILURE COPD HTN HX OF CVA DIABETES NEUROPATHY NOW WITH RAUSCH/ SOB/ NON PRODUCTIVE COUGH NOW WITH CHEST PAIN TROPONIN NEGATIVE EF >55% RIGHT SIDED PRESSURE OVERLOAD NO HX OF UT Assessment/Plan ABX STEROIDS ANTI TUSSIVES NON CARDIAC CHEST PAIN CARDIOLITE STRESS 06/16 NORMAL PERFUSION ECHO EF >55% MILD MAC MILD TR, MR Plan discussed with: Patient PERNELL SINGH MD Apr 27, 2025 12:48
[2025-04-27] MEDS: OMNIPAQUE 12mg/ml 500ml ORAL SOLUTION PO ONE (12:55)
[2025-04-27] MEDS: IOHEXOL 300 MG/ML 100ML BOTTLE IJ ONE (16:28)
--- NOTE | 2025-04-27 16:47 | DVH ---
Indication: R/O Mass, Rapid weight loss Technique: CT axial images of the abdomen and pelvis are obtained without contrast. Coronal and sagit obed reformats were obtained. Radiation Dose Information: CTDI volume is 17 mGy. Dose-length product is 795 mGy*cm Comparison: RHAN on DOS: 08/15/22 FINDINGS: There is limited interpretation of the abdomen and pelvis without administration of intravenous contr ast. Lung bases demonstrate diffuse bilateral reticulonodular pattern, bronchiectatic changes, ground-glas s disease. Adrenal glands, spleen, pancreas unremarkable. Cholecystectomy. No enhancing hepatic lesion. Kidneys demonstrate no hydronephrosis. Stomach partially distended. Small bowel loops are normal in caliber. There is a moderate to large volume stool throughout the colon. No secondary signs for appendicitis. Abdominal aortic atherosclerotic disease. Bladder partially distended. Calcified uterine leiomyoma m easuring 1.5 cm. No free pelvic fluid. No inguinal lymphadenopathy. Moderate thoracolumbar degenerative disc disease most pronounced at L4-5 and L5-S1. Thoracolumbar lev ocurvature. IMPRESSION: Limited evaluation without contrast. Lung bases demonstrate diffuse reticulo nodular pattern /reticular, bronchiectatic changes, ground-gl ass disease which can be secondary to pulmonary fibrosis/ interstitial disease, chronic lung infectio n/ atypical processes. Moderate to large volume stool within the colon. Atherosclerotic disease. Other findings as described
[2025-04-27] MEDS: PIPERACILLIN-TAZO 4.5GM 100 ML IV ONE (18:47)
[2025-04-28 01:00] VITALS: BP 106/54; PULSE 92; RESP 18; TEMP 97.7; O2SAT 96
[2025-04-28 05:00] VITALS: BP 116/60; PULSE 72; RESP 20; TEMP 97.7; O2SAT 98
[2025-04-28 08:00] VITALS: PULSE 80
[2025-04-28 08:38] VITALS: BP 113/66; PULSE 82; RESP 16; TEMP 97.7; O2SAT 96
--- NOTE | 2025-04-28 09:02 | DVHPN2 ---
Progress Note - Dictate Date Seen: Apr 28, 2025 Medical Necessity Reason Pt with a Central, PICC or Fol: No Subjective PT WELL KNOWN TO ME HX OF PUL FIBROSIS SIDE SIDE FAILURE COPD HTN HX OF CVA DIABETES NEUROPATHY NOW WITH RAUSCH/ SOB/ NON PRODUCTIVE COUGH NOW WITH CHEST PAIN TROPONIN NEGATIVE EF >55% RIGHT SIDED PRESSURE OVERLOAD NO HX OF MT vital signs Vital Sign Date Time Temp Pulse Resp B/P (MAP) Pulse Ox O2 Delivery O2 Flow Rate FiO2 04/28/25 08:38 97.7 82 16 113/66 (82) 96 97.7 04/27/25 20:00 Nasal Cannula* 2 28 Total Intake and Output 04/27/25 04/27/25 04/28/25 15:00 23:00 07:00 Intake Total 1000 ml 480 ml Balance 1000 ml 480 ml medications Current Medications Medications Dose Ordered Sig/Page Route Start Time Stop Time Status Last Admin Dose Admin Acetaminophen/ Hydrocodone Bitart 1 tab Q4HP PRN PO 04/25/25 22:45 04/27/25 23:06 1 TAB Ondansetron HCl 4 mg Q4HP PRN IV 04/25/25 22:45 Docusate Sodium 100 mg BIDPRN PRN PO 04/25/25 22:45 Morphine Sulfate 2 mg Q4HPRN PRN IV 04/25/25 22:45 Nitroglycerin 0.4 mg Q5MINP PRN SL 04/25/25 22:45 Morphine Sulfate 2 mg Q30M PRN IV 04/25/25 22:45 Aspirin 81 mg DAILY PO 04/26/25 10:00 04/27/25 09:10 81 MG Furosemide 40 mg DAILY PO 04/26/25 10:00 04/27/25 09:11 40 MG Levothyroxine Sodium 75 mcg QAM PO 04/26/25 07:00 04/28/25 06:05 75 MCG Pantoprazole Sodium 40 mg QAM PO 04/26/25 07:00 04/28/25 06:05 40 MG Sacubitril/ Valsartan 1 tab DAILY PO 04/26/25 10:00 04/27/25 09:11 1 TAB Atorvastatin Calcium 40 mg HS PO 04/26/25 22:00 04/27/25 22:01 40 MG Diagnostic Test (Pha) 1 strip ACHS 04/26/25 17:00 04/28/25 06:05 1 STRIP Insulin Human Regular ACHS SC 04/26/25 17:00 04/28/25 06:15 2 UNITS Dextrose 50 ml UD PRN IV 04/26/25 16:15 Guaifenesin/ Dextromethorphan 10 ml Q6HP PRN PO 04/26/25 16:30 04/27/25 16:50 10 ML laboratory and microbiology Laboratory Tests 04/26/25 07:24 Test 04/26/25 07:24 Range/Units Serum Glucose 180 H 74-106 mg/dL Problem List HX OF PUL FIBROSIS SIDE SIDE FAILURE COPD HTN HX OF CVA DIABETES NEUROPATHY NOW WITH RAUSCH/ SOB/ NON PRODUCTIVE COUGH NOW WITH CHEST PAIN TROPONIN NEGATIVE EF >55% RIGHT SIDED PRESSURE OVERLOAD NO HX OF MT Assessment/Plan ABX STEROIDS ANTI TUSSIVES NON CARDIAC CHEST PAIN CARDIOLITE STRESS 06/16 NORMAL PERFUSION ECHO EF >55% MILD MAC MILD TR, MR CT OF CHEST ABD PELVIS PUL FIBROSIS INCREASE STOOL CONTENT NO EVIDENCE FOR MASS Plan discussed with: Patient PERNELL SINGH MD Apr 28, 2025 09:02
--- NOTE | 2025-04-28 12:01 | DVHPN2 ---
Subjective The patient is seen and examined at bedside. Son at bedside. The patient complained of chest pain in the middle of her chest. The patient complain of shortness for breath. The patient states she had been losing weight for two months. She lost about 9 lb. She said her bundling machine operator, Dr. Jacob about to send her for CT scan however she had not have chance to do so. Reviewed: Care Plan, H&P, Labs, Medications, Previous Orders, Radiology Eyes: No Pain, No Vision change, No Conjunctivae inflammation, No Eyelid inflammation, No Other, No Redness ENT: No Ear pain, No Ear discharge, No Nose pain, No Nose discharge, No Nose congestion, No Mouth pain, No Mouth swelling, No Throat pain, No Throat swelling, No Other Cardiovascular: Chest Pain; No Palpitations, No Orthopnea, No Paroxysmal Noc. Dyspnea, No Edema, No Lt Headedness, No Other Respiratory: Cough; No Dry; Shortness of breath; No SOB with excertion, No Wheezing, No Hemoptysis, No Pleuritic Pain, No Sputum, No Other Gastrointestinal: No Nausea, No Vomiting, No Abdominal Pain, No Diarrhea, No Constipation, No Melena, No Hematochezia, No Other Genitourinary: No Dysuria, No Frequency, No Incontinence, No Hematuria, No Retention, No Other Musculoskeletal: No other, No neck pain, No shoulder pain, No arm pain, No back pain, No hand pain, No leg pain, No foot pain Skin: No Rash, No Lesions, No Jaundice, No Bruising, No Other Objective Vitals Vital Signs Date Time Temp Pulse Resp B/P (MAP) Pulse Ox O2 Delivery O2 Flow Rate FiO2 04/28/25 10:24 113/66 04/28/25 08:38 97.7 82 16 96 97.7 04/28/25 07:40 Nasal Cannula* 2 28 Intake/Output Intake and Output 04/28/25 07:00 Intake Total 1480 ml Balance 1480 ml Intake Oral 1480 ml # Voids 8 # Bowel Movements 4 General Appearance: Alert, Oriented X3, Cooperative, No acute distress HEENT: Atraumatic, PERRLA, EOMI, Mucous membr. moist/pink Neck: Supple Lungs: Clear to auscultation, Normal air movement Cardiovascular: Regular rate, Normal S1, Normal S2, No murmurs, Gallops, Rubs Abdomen: Normal bowel sounds, Soft, No tenderness Neuro: Cranial nerves 3-12 NL Psych/Mental Status: Mental status NL Medications Current Medications Medications Dose Ordered Sig/Page Route Start Time Stop Time Status Last Admin Dose Admin Acetaminophen/ Hydrocodone Bitart 1 tab Q4HP PRN PO 04/25/25 22:45 04/27/25 23:06 1 TAB Ondansetron HCl 4 mg Q4HP PRN IV 04/25/25 22:45 Docusate Sodium 100 mg BIDPRN PRN PO 04/25/25 22:45 Morphine Sulfate 2 mg Q4HPRN PRN IV 04/25/25 22:45 Nitroglycerin 0.4 mg Q5MINP PRN SL 04/25/25 22:45 Morphine Sulfate 2 mg Q30M PRN IV 04/25/25 22:45 Aspirin 81 mg DAILY PO 04/26/25 10:00 04/28/25 10:23 81 MG Furosemide 40 mg DAILY PO 04/26/25 10:00 04/28/25 10:24 40 MG Levothyroxine Sodium 75 mcg QAM PO 04/26/25 07:00 04/28/25 06:05 75 MCG Pantoprazole Sodium 40 mg QAM PO 04/26/25 07:00 04/28/25 06:05 40 MG Sacubitril/ Valsartan 1 tab DAILY PO 04/26/25 10:00 04/28/25 10:23 1 TAB Atorvastatin Calcium 40 mg HS PO 04/26/25 22:00 04/27/25 22:01 40 MG Diagnostic Test (Pha) 1 strip ACHS 04/26/25 17:00 04/28/25 11:14 1 STRIP Insulin Human Regular ACHS SC 04/26/25 17:00 04/28/25 11:15 3 UNITS Dextrose 50 ml UD PRN IV 04/26/25 16:15 Guaifenesin/ Dextromethorphan 10 ml Q6HP PRN PO 04/26/25 16:30 04/28/25 10:24 10 ML Laboratory Results Laboratory Tests 04/26/25 07:24 Urinalysis Test 04/26/25 10:35 Urine Color Light-yellow (Yellow) Urine Clarity Clear (Clear) Urine pH 6.0 (5.0-9.0) Urine Specific [place] 1.008 (1.001-1.035) Urine Protein Negative (Negative) Urine Ketones Negative (Negative) Urine Blood Negative /uL (Negative) Urine Nitrite Negative (Negative) Urine Bilirubin Negative (Negative) Urine Urobilinogen Normal mg/dL (Negative) Urine Leukocyte Esterase Negative /uL (Negative) Urine RBC <1 /hpf (0 - 4) Urine Microscopic WBC 1 /HPF (0-5) Urine Squamous Epithelial Cells Few /hpf (<5) Urine Bacteria Few /hpf (None Seen) H Urine Yeast (Budding) Occasional /hpf (None Urine Glucose 3+ mg/dL (Normal) H Microbiology Microbiology Date/Time Source Procedure Growth Status 04/25/25 22:19 Blood Blood Culture - Preliminary NO GROWTH AFTER 48 HOURS OF INCUBATION. Resulted Assessment/Plan Assessment/Plan # Acute on chronic respiratory failure # SIRS likely due to Gram positive/Gram-negative pneumonia: Azithromycin # HFrEF # Chronic respiratory failure due to COVID pneumonia: On 2 L oxygen at home # Essential hypertension: Continue home medication # history of Stroke # history of osteoporosis , osteoarthritis # Diabetes mellitus HbA1c # History of hypothyroidism: Continue home meds # coronary artery disease Continuing current management. The patient has cardiac history so I will consult bundling machine operator. Her bundling machine operator is Dr. Jacob. I will order a CT chest abdomen pelvis with oral and IV contrast to rule out malignancy. Per patient she had colonoscopy couple years ago and was normal. Denied any melena or bright red blood per rectum. Denied any hematemesis. Continuing with Robitussin DM PRN for cough . Continuing IV antibiotic This medical document was created using an electronic medical record system with [employer] direct computerized dictation system. Although this document has been carefully reviewed, there may still be some phonetic and typographical errors. These areas are purely typographical due to imperfections of the software programs, and do not reflect any compromise in the patient's medical care. My Orders Orders - TITO HESS MD Procedure Category Date Status Time Ct Abd Pelvis W CT 04/27/25 Resulted Con-Oral & Iv 12:42 TITO HESS MD Apr 28, 2025 12:01
[2025-04-28 13:00] VITALS: BP 116/71; PULSE 92; RESP 17; TEMP 97.5; O2SAT 96
[2025-04-28] MEDS ORDERED: AZIT-74 PO (13:00)
[2025-04-28] MEDS ORDERED: HYDR-4798 PO (13:00)
[2025-04-28] MEDS ORDERED: METH4PAK PO (13:00)
--- NOTE | 2025-04-28 13:03 | DVHDS2 ---
Discharge Summary Date of Admission Apr 25, 2025 at 22:36 Date of Discharge: Apr 28, 2025 Admitting Diagnosis # Acute on chronic respiratory failure # SIRS likely due to Gram positive/Gram-negative pneumonia: # HFrEF # Chronic respiratory failure due to COVID pneumonia: On 2 L oxygen at home # Essential hypertension # history of Stroke # history of osteoporosis , osteoarthritis # Diabetes mellitus # History of hypothyroidism # coronary artery disease Labs/Diagnostic Data: Laboratory Results Test 04/28/25 11:12 04/26/25 10:35 04/26/25 07:24 04/26/25 03:00 POC Glucose 190 mg/dl (70-106) Urine Color Light-yellow (Yellow) Urine Clarity Clear (Clear) Urine pH 6.0 (5.0-9.0) Urine Specific [place] 1.008 (1.001-1.035) Urine Protein Negative (Negative) Urine Ketones Negative (Negative) Urine Blood Negative /uL (Negative) Urine Nitrite Negative (Negative) Urine Bilirubin Negative (Negative) Urine Urobilinogen Normal mg/dL (Negative) Urine Leukocyte Esterase Negative /uL (Negative) Urine RBC <1 /hpf (0 - 4) Urine Microscopic WBC 1 /HPF (0-5) Urine Squamous Epithelial Cells Few /hpf (<5) Urine Bacteria Few /hpf (None Seen) Urine Yeast (Budding) Occasional /hpf (None Urine Glucose 3+ mg/dL (Normal) Urine Opiates Screen Neg (NEGATIVE) Urine Fentanyl Screen Neg (NEGATIVE) Urine Barbiturates Screen Neg (NEGATIVE) Urine Phencyclidine Screen Neg (NEGATIVE) Urine Amphetamines Screen Neg (NEGATIVE) Urine Benzodiazepines Screen Neg (NEGATIVE) Urine Cocaine Screen Neg (NEGATIVE) Urine Cannabinoids Screen Neg (NEGATIVE) White Blood Count 9.0 10^3/uL (4.4-10.8) Red Blood Count 4.56 10^6/uL (4.0-5.20) Hemoglobin 13.7 g/dL (12.2-16.2) Hematocrit 40.1 % (36.0-46.0) Mean Corpuscular Volume 87.9 fL (80.0-100.0) Mean Corpuscular Hemoglobin 30.0 pg (28.0-32.0) Mean Corpuscular Hemoglobin Concent 34.2 g/dL (32.0-36.0) Red Cell Distribution Width 14.6 % (11.8-14.3) Platelet Count 168 10^3/uL (140-450) Mean Platelet Volume 8.9 fL (6.9-10.8) Neutrophils (%) (Auto) 82.8 % (37.0-80.0) Lymphocytes (%) (Auto) 15.8 % (10.0-50.0) Monocytes (%) (Auto) 1.1 % (0.0-12.0) Eosinophils (%) (Auto) 0.0 % (0.0-7.0) Basophils (%) (Auto) 0.3 % (0.0-2.0) Neutrophils # (Auto) 7.4 10 ^3/uL (1.6-8.6) Lymphocytes # (Auto) 1.4 10 ^3/uL (0.4-5.4) Monocytes # (Auto) 0.1 10 ^3/uL (0-1.3) Eosinophils # (Auto) 0 10 ^3/uL (0-0.8) Basophils # (Auto) 0 10 ^3/uL (0-0.2) Nucleated Red Blood Cells 0.0 % Erythrocyte Sedimentation Rate 11 mm/hr (0-20) Prothrombin Time 11.3 sec (9.3-11.8) Prothrombin Time INR 1.07 (0.9-1.15) D-Dimer, Quantitative 0.74 mg/L FEU (0.0-0.49) Sodium Level 138 mmol/L (136-145) Potassium Level 4.5 mmol/L (3.5-5.1) Chloride Level 104 mmol/L (98-107) Carbon Dioxide Level 24 mmol/L (20-31) Anion Gap 10 (5-15) Blood Urea Nitrogen 15 mg/dL (9-23) Creatinine 0.75 mg/dL (0.550-1.02) Glomerular Filtration Rate Calc 82 mL/min (>90) BUN/Creatinine Ratio 20.0 (10.0-20.0) Serum Glucose 180 mg/dL (74-106) Hemoglobin A1c 6.9 % A1C (<5.7) Calcium Level 8.7 mg/dL (8.7-10.4) Total Bilirubin 0.4 mg/dL (0.2-1.0) Direct Bilirubin 0.1 mg/dL (<0.3) Aspartate Amino Transferase (AST) 26 U/L (13-40) Alanine Aminotransferase (ALT) 18 U/L (7-40) Alkaline Phosphatase 69 U/L (46-116) C-Reactive Protein High Sensitivity 1.07 mg/dL (<1.0) Total Protein 7.2 g/dL (5.7-8.2) Albumin 4.1 g/dL (3.2-4.8) Triglycerides Level 80 mg/dL (< 150) Cholesterol Level 145 mg/dL (< 200) LDL Cholesterol 74 mg/dL (< 100) HDL Cholesterol 63 mg/dL (40-59) Thyroid Stimulating Hormone (TSH) 2.23 uIU/mL (0.55-4.78) Influenza Type A Antigen Negative (Negative) Influenza Type B Antigen Negative (Negative) SARS-CoV-2 Antigen (Rapid) Negative (NEGATIVE) Test 04/25/25 22:19 04/25/25 21:53 04/25/25 20:50 Lactic Acid Level 1.3 mmol/L (0.4-2.0) Troponin I High Sensitivity 3 ng/L (</=34) B-Type Natriuretic Peptide 30.81 pg/mL (0-100) Other Laboratory Tests 04/26/25 07:24 Brief Hx & Hospital Course: This is a 74 years old female with past medical history of chronic respiratory failure on 2 L of oxygen at home. Congestive heart failure, the coronary artery disease, CVA, diabetes, hyperlipidemia, hypertension, hypothyroidism, history ME come to emergency department because of shortness for breath and carb for one day. Also pressure like chest discomfort. She said her pain is 10/10 radiating to the back and left shoulder. Troponin level is normal. EKG is normal. COVID-19 and influenza a and B negative . chest x-ray showed possible underlying infection. The patient was admitted. Cardiology was consulted. Dr. Jacob, her pan reclaim processor see the patient and recommend no further workup. He recommended outpatient follow up. Patient was put empirically on IV antibiotic and cough syrup. The patient subsequently doing better. Her oxygen back to baseline at 2 L at home. Patient also complained of recent weight loss. Denied any melena or bright red blood per rectum. She said she had colonoscopy done as outpatient which is negative. The patient subsequently had CT chest, abdomen, and pelvis with and without oral and IV contrast. It showed Lung bases demonstrate diffuse reticulo nodular pattern /reticular, bronchiectatic changes, ground-glass disease which can be secondary to pulmonary fibrosis/ interstitial disease, chronic lung infection/ atypical processes.Moderate to large volume stool within the colon. The patient moved normal bowel movement. No constipation. I am going to discharge the patient home today. Advised her to follow up with Dr. Mathew, her energy systems engineer as outpatient. Follow up with primary care physician 1-2 weeks. Follow up with Dr. Jacob, her pan reclaim processor per schedule. Activity as tolerated. Diet per home diet. Recommend low-salt low-cholesterol carb controlled diet Physical exam: HEENT: Normocephalic atraumatic pupils equal react to light and accommodation. Extraocular muscles intact, conjunctiva pink, oropharynx moist, no thrush, no exudate. Lymphatic: No lymphadenopathy Cardiovascular exam: S1, S2 was heard. No murmurs, rubs, gallops Lung: Clear on auscultation bilaterally, no wheeze, rale, rhonchi. GI: Abdominal soft, nondistended, nontenderness, positive bowel sounds. Extremity: No crepitus, cyanosis, edema. Pedal pulses present bilateral. Full range of motion. Skin: Normal turgor, no rash. Psych: Alert, oriented x3. Neurology: No focal deficits, cranial nerve II to XII grossly intact. This medical document was created using an electronic medical record system with [employer] direct computerized dictation system. Although this document has been carefully reviewed, there may still be some phonetic and typographical errors. These areas are purely typographical due to imperfections of the software programs, and do not reflect any compromise in the patient's medical care. Condition at Discharge: Stable Final Diagnosis/Problems List # Acute on chronic respiratory failure # SIRS likely due to Gram positive/Gram-negative pneumonia: # HFrEF # Chronic respiratory failure due to COVID pneumonia: On 2 L oxygen at home # Essential hypertension # history of Stroke # history of osteoporosis , osteoarthritis # Diabetes mellitus # History of hypothyroidism # coronary artery disease Discharge Disposition: Home Discharge Instruct/Medications Diet: Consistent carbohydrate, Cardiac 2g Na,low cholest Activity: No Restrictions, As Tolerated Follow Up/Referral: pcp 1-2 weeks Portable Canteen Operator, Dr Mathew per schedule Habilitation Assistant, Dr Jacob per schedule Medications: See med list Scheduled Aspirin (Aspirin Low Dose), 1 TAB PO DAILY, (Reported) Atorvastatin Calcium (Atorvastatin Calcium), 1 TAB PO DAILY, (Reported) Azithromycin (Zithromax), 250 MG PO DAILY Baclofen (Baclofen), 10 MG PO DAILY, (Reported) Dronedarone Hydrochloride (Multaq), 1 TAB PO BID, (Reported) Duloxetine HCl (Duloxetine HCl), 1 CAP PO DAILY, (Reported) Duloxetine Hcl (Cymbalta), 1 CAP PO DAILY, (Reported) Ergocalciferol (Vitamin D (Ergocalciferol), 1 CAP PO QWEEKLY, (Reported) Furosemide (Furosemide), 1 TAB PO DAILY, (Reported) Levothyroxine Sodium (Levothyroxine Sodium), 75 MCG PO QAM, (Reported) Levothyroxine Sodium (Levothyroxine Sodium), 1 TAB PO DAILY, (Reported) Metformin Hydrochloride (Metformin Hcl), 1 TAB PO BID, (Reported) Methylprednisolone (Medrol Dosepak), 4 MG PO UD Pantoprazole Sodium Sesquihydr (Protonix), 1 TAB PO DAILY, (Reported) Pantoprazole Sodium Sesquihydr (Pantoprazole Sodium), 1 TAB PO DAILY, (Reported) Sacubitril-Valsartan (Entresto 24-26 mg), 1 TAB PO DAILY, (Reported) Scheduled PRN Hydrocodone-Acetaminophen (Hydrocodone Bitartrate/AC 10-325 mg), 1 TAB PO Q6HP PRN for PAIN SCALE 7 THRU 10 Miscellaneous Medications Aspirin (Aspirin 81), 81 MG OR, (Reported) Atorvastatin Calcium (Lipitor), 40 MG PO, (Reported) Furosemide (Lasix), 40 MG PO, (Reported) Potassium Chloride (Potassium Chloride ER), 20 MEQ PO, (Reported) Discontinued Medications Baclofen (Baclofen), 10 MG PO Q8HP PRN for FOR CHEST PAIN, (Reported) Empagliflozin (Jardiance), 1 TAB PO DAILY, (Reported) Metformin Hydrochloride (Metformin Hcl), 1 TAB PO BID, (Reported) Discharge Statement: "Patient was advised to return to the ER or call 911 if any headaches, dizziness, shortness of breath, chest pain, abdominal pain, bleeding, fevers, or worsening of medical condition. Patient was counseled about treatment plan, medications, possible side effects, patientverbalized understanding. All questions were answered to the best of my ability. This discharge took greater then 30 minutes in planning, reviewing documentation, counseling the patient, and discussing with other team members." ASSESSMENT ASSESSMENT Assessment chest pain Date of Service: Apr 28, 2025 Billing Provider: TITO HESS MD Common Visit Codes: 91958-ZSS/OBS DISCH DAY >30min TITO HESS MD Apr 28, 2025 13:03
[2025-04-28 15:09] VITALS: BP 113/66; TEMP 36.4
== END 2025-04-28 16:06 | disposition home or self-care (01) | DRG 177 ==
LOC: ER 20:21 → OVERFLOW 22:36 → TELE-WESTW 04-26 05:00 → WEST WING 04-28 10:41
PROVIDERS: ADMIT Internal Medicine; ATTEND Internal Medicine
DX: U07.1 COVID-19 (principal); J96.20 Acute and chronic respiratory failure, unspecified whether with hypoxia or hypercapnia; R65.10 Systemic inflammatory response syndrome (SIRS) of non-infectious origin without acute organ dysfunction; I50.20 Unspecified systolic (congestive) heart failure; J44.0 Chronic obstructive pulmonary disease with (acute) lower respiratory infection; J15.69 Pneumonia due to other Gram-negative bacteria; Z20.822 Contact with and (suspected) exposure to COVID-19; M81.0 Age-related osteoporosis without current pathological fracture; J84.10 Pulmonary fibrosis, unspecified; I11.0 Hypertensive heart disease with heart failure; I50.9 Heart failure, unspecified; I25.10 Atherosclerotic heart disease of native coronary artery without angina pectoris; E78.5 Hyperlipidemia, unspecified; E03.9 Hypothyroidism, unspecified; E11.40 Type 2 diabetes mellitus with diabetic neuropathy, unspecified; Z88.1 Allergy status to other antibiotic agents; Z88.5 Allergy status to narcotic agent; Z79.82 Long term (current) use of aspirin; Z79.84 Long term (current) use of oral hypoglycemic drugs; Z79.899 Other long term (current) drug therapy; Z90.49 Acquired absence of other specified parts of digestive tract; Z99.81 Dependence on supplemental oxygen; Z86.73 Personal history of transient ischemic attack (TIA), and cerebral infarction without residual deficits; I25.2 Old myocardial infarction; Z86.16 Personal history of COVID-19; Z96.651 Presence of right artificial knee joint
CPT/HCPCS: 36415; 71045; 74177; 80048; 80053; 80061; 80076; 80307; 81001; 82962; 83036; 83605; 83880; 84443; 84484; 85025; 85379; 85610; 85652; 86141; 87040; 87426; 87804; 93005; 93306; 94640; 96374; G0378; J1815

== ENCOUNTER 2025-08-19 15:24 | Emergency (ER) | payer OTHER, MEDICAID ==
[~2025-08-19] VITALS: Ht 149.9 cm; Wt 57.3 kg
[2025-08-19] MEDS: ACCU-CHEK COMFORT CURVE STRIP VI SCH (00:06)
[2025-08-19] MEDS: InsuLIN REG 1unit/0.01ml Soln (100units/ml) SC SCH (00:06)
[~2025-08-19 15:24] MED LIST changes: +ASPI81CH59 PO; +ATOR40TA52 PO; +AZIT-74 PO; -BACL10TA PO; +BACL20TA PO; +DULO1CAP5 PO; +FURO40TA4 PO; +HYDR-4798 PO; +LEVO75TA6 PO; +METH4PAK PO; +PANT40T PO
--- NOTE | 2025-08-19 16:41 | ED.PDOC ---
Mariel. trauma (HPI) HPI Comments 74-year-old female with primary history of CHF, hypertension, diabetes, blood thinner use, presents to the ED for chief complaint of left arm/elbow and left knee pain status post mechanical fall today at home. Patient reports that her leg lot on her while she was in her kitchen, states she fell on her neck side onto wood floor her head. Patient presents with bruising, swelling and pain to the left lateral aspect of the elbow, left knee and left-sided headache. Patient does mentioned that she lost consciousness for a couple of sec but was able to get herself back up by herself. Patient is on blood thinners. Initial saturation level 90% on room air upon ED arrival however dust mentioned that she is on 2 L of oxygen at home with a did not bring it today. Patient was placed on 2 L of oxygen increased in saturations. He denies any dizziness, lightheadedness, chest pain, shortness of breath, fever, chills, recent illness Chief Complaint: Fall Injury Time Seen by MD: 16:17 Primary Care Provider: PERNELL Reviewed notes: Nurses Notes, Medications, Allergies Allergies: Coded Allergies: Ceftriaxone (Unverified Allergy, Severe, 07/24/24) Codeine (Unverified Allergy, Severe, 07/24/24) Levofloxacin (Unverified Allergy, Severe, 07/24/24) Home Meds Active Scripts Methylprednisolone (Medrol Dosepak) 4 Mg Adi, 4 MG PO UD, #21 TAB UAD Prov:TITO HESS MD 04/28/25 Azithromycin (Zithromax) 250 Mg Tab, 250 MG PO DAILY, #6 TAB take 2 tabs the first day, then 1 tab daily until finish Prov:TITO HESS MD 04/28/25 Hydrocodone-Acetaminophen (Hydrocodone Bitartrate/AC 10-325 mg) 1 Tab Tab, 1 TAB PO Q6HP PRN for PAIN SCALE 7 THRU 10, #20 TAB Prov:TITO HESS MD 04/28/25 Reported Medications Baclofen (Baclofen) 20 Mg Tab, 10 MG PO DAILY, TAB 04/26/25 Atorvastatin Calcium (ATORVASTATIN CALCIUM) 40 Mg Tab, 1 TAB PO DAILY 04/26/25 Aspirin (Aspirin Low Dose) 81 Mg Chw, 1 TAB PO DAILY 04/26/25 Furosemide (Furosemide) 40 Mg Tab, 1 TAB PO DAILY 04/26/25 Levothyroxine Sodium (Levothyroxine Sodium) 75 Mcg Tab, 1 TAB PO DAILY 04/26/25 Pantoprazole Sodium Sesquihydr (Pantoprazole Sodium) 40 Mg Tab, 1 TAB PO DAILY 04/26/25 Duloxetine HCl (Duloxetine HCl) 30 Mg Cap, 1 CAP PO DAILY 04/26/25 Levothyroxine Sodium (Levothyroxine Sodium) 25 Mcg Tab, 75 MCG PO QAM for 90 Days, #90 07/27/24 Sacubitril-Valsartan (Entresto 24-26 mg) 1 Tab Tab, 1 TAB PO DAILY for 90 Days, #85 07/27/24 Dronedarone Hydrochloride (Multaq) 400 Mg Tab, 1 TAB PO BID for 90 Days, #180 07/27/24 Duloxetine Hcl (Cymbalta) 30 Mg Cap, 1 CAP PO DAILY for 90 Days, #90 07/27/24 Ergocalciferol (Vitamin D (Ergocalciferol) 50,000 Unit Cap, 1 CAP PO QWEEKLY for 84 Days, #12 07/27/24 Pantoprazole Sodium Sesquihydr (Protonix) 40 Mg Tab, 1 TAB PO DAILY for 90 Days, #90 07/27/24 Metformin Hydrochloride (Metformin Hcl) 500 Mg Tab, 1 TAB PO BID for 90 Days, #180 07/27/24 Aspirin (ASPIRIN 81) 81 Mg Tab, 81 MG OR, TAB 07/25/24 Furosemide (Lasix) 40 Mg Tab, 40 MG PO for 1 Day, TAB 07/25/24 Atorvastatin Calcium (Lipitor) 40 Mg Tab, 40 MG PO for 1 Day, TAB 07/25/24 Potassium Chloride (Potassium Chloride ER) 20 Meq Tab, 20 MEQ PO for 1 Day, TAB 07/25/24 Information Source: Patient Mode of Arrival: cane Severity: Moderate Timing: Hours Duration: Since onset Location: (L) Elbow, Head, (L) Knee Location of laceration: None Mechanism: Fall Associated signs and symtoms: Headache Past Medical History PAST MEDICAL HISTORY: Angina, Arthritis, CHF, CVA, DM, High Lipids, HTN, ID, Thyroid Surgical History: Appendectomy, Cholecystectomy [employer] History: Denies all [employer] Hx Family History Family History: Reviewed,noncontributory to illness, Unknown Social History Smoker: Non-Smoker Alcohol: Denies ETOH Use Drugs: Denies Drug Use Lives In: Home Constitutional: denies: chills, diaphoresis, fatigue, fever, malaise, sweats, weakness, others EENTM: denies: blurred vision, double vision, ear bleeding, ear discharge, ear drainage, ear pain, ear ringing, eye pain, eye redness, hearing loss, mouth pain, mouth swelling, nasal discharge, nose bleeding, nose congestion, nose pain, photophobia, tearing, throat pain, throat swelling, voice changes, others Respiratory: denies: cough, hemoptysis, orthopnea, SOB at rest, shortness of breath, SOB with excertion, stridor, wheezing, others Cardiovascular: denies: chest pain, dizzy spells, diaphoresis, Dyspnea on exertion, edema, irregular heart beat, left arm pain, lightheadedness, palpitations, PND, syncope, others Gastrointestinal: denies: abdomen distended, abdominal pain, blood streaked bowels, constipated, diarrhea, dysphagia, difficulty swallowing, hematemesis, melena, nausea, poor appetite, poor fluid intake, rectal bleeding, rectal pain, vomiting, others Genitourinary: denies: abnormal vagina bleeding, burning, dyspareunia, dysuria, flank pain, frequency, hematuria, incontinence, pain, , vagina discharge, urgency, others Neurological: reports: headache; denies: dizziness, fainting, left sided numbness, left sided weakness, numbness, paresthesia, pre-existing deficit, right sided numbness, right sided weakness, seizure, speech problems, tingling, tremors, weakness, others Musculoskeletal: reports: others (Left elbow and left knee pain with left-sided him); denies: back pain, gout, joint pain, joint swelling, muscle pain, muscle stiffness, neck pain Integumetry: reports: bruises (Elbow and left knee); denies: change in color, change in hair/nails, dryness, laceration, lesions, lumps, rash, wounds, others Allergic/Immunocompromised: denies: Difficulty Healing, Frequent Infections, Hives, Itching, others Hematologic/Lymphatic: denies: anemia, blood clots, easy bleeding, easy bruising, swollen glands, others Endocrine: denies: excessive hunger, excessive sweating, excessive thirst, excessive urination, flushing, intolerance to cold, intolerance to heat, unexplained weight gain, unexplained weight loss, others Psychiatric: denies: anxiety, bipolar disorder, depression, hopeless, panic disorder, schizophrenia, sleepless, suicidal, others All Other Systems: Reviewed and Negative Physical Exam General Appearance: Moderate Distress HEENT: Normal ENT Inspection, Pharynx Normal, TMs Normal Neck: Full Range of Motion, Non-Tender, Normal, Normal Inspection Respiratory: Chest Non-Tender, Lungs Clear, No Accessory Muscle Use, No Respiratory Distress, Normal Breath Sounds Cardiovascular: No Edema, No JVD, No Murmur, No Gallop, Normal Peripheral Pulses, Regular Rate/Rhythm Breast Exam: Deferred Gastrointestinal: No Organomegaly, Non Tender, No Pulsatile Mass, Normal Bowel Sounds, Soft Genitalia: Deferred Pelvic: Deferred Rectal: Deferred Extremities: No calf tenderness, Normal capillary refill, Normal inspection, Normal range of motion, Non-tender, No pedal edema Musculoskeletal : Apperance: Normal Neurologic: Alert, books binder II-XII nml as Tested, No Motor Deficits, Normal Affect, Normal Mood, No Sensory Deficits Cerebellar Function: NOT DONE Reflexes: NOT DONE Skin: Bruises (Left elbow knee), Wounds (Left elbow knee) Peripheral Pulses: 3+ Radial (R), 3+ Radial (L) Lymphatic: No Adenopathy Was a procedure done? Was a procedure done?: No Differential Diagnosis Multiple Trauma: Closed Head Injury, Fractures, Abrasions, Contusion, Hematoma X-Ray, Labs, Meds, VS Vital Signs Date Time Temp Pulse Resp B/P (MAP) Pulse Ox O2 Delivery O2 Flow Rate FiO2 08/19/25 15:26 97.8 94 20 130/78 91 97.8 Patient alert. She is comfortable. Does have wounds on the left elbow knee. Vitals stable. Answering questions. Hematoma of the left knee. Head injury. Explained to the patient she will be admitted for further evaluation. Continue monitoring. Time of 1ST Reevaluation: 16:41 Reevaluation 1ST: Unchanged Patient Education/Counseling: Diagnosis, Treatment, Prognosis Family Education/Counseling: No Family Present Departure 1 Departure Time of Disposition: 17:19 Impression: Primary Impression: Head injury Qualified Codes: S09.90XA - Unspecified injury of head, initial encounter Additional Impressions: Knee strain Qualified Codes: S86.912A - Strain of unspecified muscle(s) and tendon(s) at lower leg level, left leg, initial encounter Hematoma of left elbow Disposition: ADMITTED INPATIENT Admit to: Med Surg Condition: Guarded Critical Care Note Critical Care Time?: No Stability Stability form required: No Heart Score Heart Score: Heart Score Response (Comments) Value History N/A 0 EKG N/A 0 Age N/A 0 Risk Factors N/A 0 Troponin N/A 0 Total 0 I personally scribed for GAMALIEL CAPUTO MD ([email or web address]) on 08/19/25 at 16:41. Electronically submitted by Micki Barakat ([facility]). GAMALIEL CAPUTO MD Aug 19, 2025 16:41
--- NOTE | 2025-08-19 17:54 | DVH ---
COMPUTERIZED TOMOGRAPHY OF THE HEAD WITHOUT CONTRAST REASON FOR STUDY: fall COMPARISON: CT HEAD WITHOUT CONTRAST on DOS: 07/13/24, CT HEAD WITHOUT CONTRAST on DOS: 11/23/23, CT HEAD WITHOUT CONTRAST on DOS: 04/17/23 TECHNIQUE: Helical tomographic scans were obtained through the brain. 2-D coronal and sagittal reformatted images are provided. Radiation optimization: All CT scans at this facility use at least one of these dose optimization techniques: Automated exposure control mA and/or kV adjustment per patient size (includes targeted exams where dose is matched to clinical indication) or iterative reconstruction. RADIATION DOSE: CTDI: 52 mGy DLP: 916 mGy-cm FINDINGS: No suspicious intracranial hyperdensity to suggest acute blood. There is no mass effect nor midline shift. There is severe generalized volume loss with compensatory enlargement of the CSF spaces. There is no hydrocephalus. The suprasellar cistern is intact. There are scattered periventricular and deep white matter hypodensities that are most consistent with chronic microangiopathic changes. The calvarium is intact. The visualized mastoid air cells and paranasal sinuses are clear. The patient is status post bilateral lens surgeries. There is severe degenerative change at the temporomandibular joints. IMPRESSION: No acute intracranial abnormality. Severe generalized volume loss with chronic small vessel ischemic change.
[2025-08-19 17:58] LABS: Hematocrit 39.5 % (36.0-46.0); Hemoglobin 12.8 g/dL (12.2-16.2); Mean Corpuscular Hemoglobin 29.1 pg (28.0-32.0); Mean Corpuscular Volume 89.5 fL (80.0-100.0); Nucleated Red Blood Cells % 0.0 %
[2025-08-19 18:00] LABS: Chloride 106 mmol/L (98-107); Potassium 4.2 mmol/L (3.5-5.1); Sodium 140 mmol/L (136-145)
[2025-08-19 18:01] LABS: Anion Gap 9 (5-15); Carbon Dioxide 25 mmol/L (20-31)
[2025-08-19 18:02] LABS: Calcium 8.8 mg/dL (8.7-10.4)
--- NOTE | 2025-08-19 18:04 | DVH ---
CLINICAL INDICATION: fall TECHNIQUE: 2 radiographic views of the left knee were obtained. COMPARISON: XY L KNEE 3V XRAY on DOS: 05/29/23 FINDINGS/IMPRESSION: There is no evidence of acute fracture or dislocation. Mild tricompartmental degenerative changes of the knee. The alignment is anatomical. There is no radiopaque foreign body. Chondrocalcinosis of the knee. Vascular calcification is noted.
[2025-08-19 18:06] LABS: BUN/Creatinine Ratio 34.9 (10.0-20.0); Glucose 103 mg/dL (74-106)
[2025-08-19 18:18] LABS: Blood Urea Nitrogen 30 mg/dL (9-23)
[2025-08-19 18:31] LABS: Urine Protein, UAD Negative (Negative)
[2025-08-19] MEDS: HYDROcodone-ACET 5/325MG TAB PO ONE (18:49)
[2025-08-19] MEDS: HYDROcodone-ACET 5/325MG TAB ONE (18:49)
--- NOTE | 2025-08-19 19:04 | DVH ---
EXAM: CT CT L ELBOW WO CONTRAST HISTORY: fall COMPARISON: None TECHNIQUE: Noncontrast axial CT images of the left elbow were performed. Sagittal and coronal reformatted images were obtained. This CT exam was performed using one or more of the following dose reduction techniques: Automated exposure control, adjustment of the mA and/or kV according to patient size, or use of iterative reconstruction technique. 3D volume rendering images were obtained of the left elbow. CT Dose: CTDI volume is 24.08 mGy. Dose-length product is 511.88 mGy*cm. FINDINGS: There is bony demineralization. There is chondrocalcinosis of the left elbow joint. There is a comminuted mildly displaced fracture of the olecranon process with extension into the trochlear ulnar joint. There is impacted fracture of the radial head/ neck. There is moderate radial and proximal avulsion of the capitellum from the distal humerus, age-indeterminate. Degenerative changes of the left shoulder with osteophyte formation. There is soft tissue swelling about the left elbow and Proximal left forearm. There is soft tissue swelling over the olecranon bursa likely olecranon bursitis. There is a left elbow joint effusion. IMPRESSION: 1. Comminuted mildly displaced fracture of the olecranon process with fracture extension into the trochlear ulnar joint. 2. Impacted fracture of the radial head / neck. 3. Moderate radial and proximal Avulsion of the capitellum from the distal humerus, age indeterminate. 4. Moderate soft tissue swelling about the left elbow and proximal left forearm. 5. Mild olecranon bursitis. 6. Small left elbow joint effusion. 7. Chondrocalcinosis of the left elbow joint.
[2025-08-19] MEDS ORDERED: ONDANSETRON HCL 4 MG/2 ML VIAL IV PRN (21:45)
[2025-08-19] MEDS ORDERED: HYDROcodone-ACET 5/325MG TAB PO PRN (21:45)
[2025-08-19] MEDS ORDERED: DEXTROSE (50%) 50ML SYRG IV PRN (21:45)
[2025-08-19] MEDS ORDERED: DOCUSATE SOD 100 MG CAP PO PRN (21:45)
[2025-08-19] MEDS: SODIUM CHLOR 0.9% PF (SALINE LOCK) 10ML VIAL/SYR IV SCH (22:00)
[2025-08-19] MEDS ORDERED: NITROGLYCERIN 0.4 MG SL TAB SL PRN (22:45)
[2025-08-19] MEDS ORDERED: MORPHINE SULFATE INJ 2 MG/ml SYRG IV PRN (22:45)
--- NOTE | 2025-08-19 22:45 | DVHHP2 ---
History of Present Illness Reason for Visit: Fall with injury History of Present Illness The patient is a 74-year-old female with multiple past medical history including arthritis, CHF, NC, diabetes mellitus, and hypertension who presented to [facility] with complaint of left arm, elbow, knee pain status post mechan ical fall at home. Patient reports that she lost her balance while she was in the kitchen and fell hitting her head, left arm, and left knee on the wood floor with sustained injury. Patient was seen and evaluated in the ED with bruising, swelling and pain to the left lateral aspect of the elbow, left knee and left- sided headache. Patient was seen and evaluated in the ED, laboratory data shows WBC 11.1, platelets 159, sodium 140, potassium 4.2, BUN 30, creatinine 0.86, GFR 70, glucose 103, calcium 8.8, troponin three, blood pressure 122/56, heart rate 86, temperature 97.8 F, O2 saturation 97% on room air. Left elbow CT revealing comminuted mildly displaced fracture of the olecranon process with fracture extension into the trochlear ulnar joint; impacted fracture of the radial head/neck. Please see medication orders section in the computer. On my assessment, daughter/son at bedside, patient denied chest pain, no headache, dizziness, diaphoresis, loss of consciousness, shortness of breaths, no abdominal pain, no diarrhea, nausea, vomiting, fever, no chills. Patient was admitted for further evaluation and medical management. Past Medical History Angina, Arthritis, CHF, CVA, DM, High Lipids, HTN, NC, Thyroid Past Surgical History Appendectomy, Cholecystectomy Family History Reviewed, noncontributory to the management of this case. Past Social History The patient lives at home, denies smoking, alcohol or illicit drugs abuse. Review of Systems Constitutional: Yes: Weakness; No: Fever, Chills, Sweats, Malaise, Other Eyes: No: Pain, Vision change, Conjunctivae inflammation, Eyelid inflammation, Other, Redness ENT: No: Ear pain, Ear discharge, Nose pain, Nose discharge, Nose congestion, Mouth pain, Mouth swelling, Throat pain, Throat swelling, Other Respiratory: No: Cough, Dry, Shortness of breath, SOB with excertion, Wheezing, Hemoptysis, Pleuritic Pain, Sputum, Wheezing, Other Cardiovascular: No: Chest Pain, Palpitations, Orthopnea, Paroxysmal Noc. Dyspnea, Edema, Lt Headedness, Other Gastrointestinal: No: Nausea, Vomiting, Abdominal Pain, Diarrhea, Constipation, Melena, Hematochezia, Other Genitourinary: No Dysuria, No Frequency, No Incontinence, No Hematuria, No Retention, No Other Musculoskeletal: other (Left elbow and left knee pain with left-sided him.); No: neck pain, shoulder pain, arm pain, back pain, hand pain, leg pain, foot pain Skin: Bruising (Elbow and left knee); No: Rash, Lesions, Jaundice, Other Neurological: Other (Headache); No: Weakness, Numbness, Incoordination, Change in speech, Confusion, Seizures Allergies: Coded Allergies: Ceftriaxone (Unverified Allergy, Severe, 07/24/24) Codeine (Unverified Allergy, Severe, 07/24/24) Levofloxacin (Unverified Allergy, Severe, 07/24/24) Medications Current Medications Medications Dose Ordered Sig/Page Route Start Time Stop Time Status Last Admin Dose Admin Aspirin 81 mg DAILY PO 08/20/25 10:00 Atorvastatin Calcium 40 mg HS PO 08/19/25 22:00 Levothyroxine Sodium 50 mcg QAM@0600 PO 08/20/25 06:00 Diagnostic Test (Pha) 1 strip ACHS 08/19/25 22:00 Insulin Human Regular ACHS SC 08/19/25 22:00 Dextrose 50 ml UD PRN IV 08/19/25 21:45 Sodium Chloride 10 ml Q8HR IV 08/19/25 22:00 Acetaminophen/ Hydrocodone Bitart 1 tab Q4HP PRN PO 08/19/25 21:45 Ondansetron HCl 4 mg Q4HP PRN IV 08/19/25 21:45 Docusate Sodium 100 mg BIDPRN PRN PO 08/19/25 21:45 Acetaminophen 650 mg Q6HP PRN PO 08/19/25 21:45 Nitroglycerin 0.4 mg Q5MINP PRN SL 08/19/25 22:45 UNV Morphine Sulfate 2 mg Q30M PRN IV 08/19/25 22:45 UNV Exam Vital Signs Vital Signs Date Time Temp Pulse Resp B/P (MAP) Pulse Ox O2 Delivery O2 Flow Rate FiO2 08/19/25 22:27 74 08/19/25 18:04 97.8 18 122/56 (78) 97 97.8 General Appearance: Alert, Oriented X3, Cooperative, No acute distress HEENT: Atraumatic, PERRLA, EOMI, Mucous membr. moist/pink Respiratory: Clear to auscultation, Normal air movement Cardiovascular: Regular rate, Normal S1, Normal S2, No murmurs Abdominal: Normal bowel sounds, Soft, No tenderness, No hepatospenomegaly, No masses Extremities: No clubbing, No cyanosis, No edema, Normal pulses, Other (Tenderness/swelling left elbow) Skin: No rashes, No significant lesion Neuro: Normal speech, Normal tone, Sensation intact, Cranial nerves 3-12 NL, Reflexes 2+, Other (Generalized weakness) Psych/Mental Status: Mental status NL, Mood NL Labs/Xrays Labs Test 08/19/25 17:44 08/19/25 17:40 Range/Units White Blood Count 11.1 H 4.4-10.8 10^3/uL Red Blood Count 4.41 4.0-5.20 10^6/uL Hemoglobin 12.8 12.2-16.2 g/dL Hematocrit 39.5 36.0-46.0 % Mean Corpuscular Volume 89.5 80.0-100.0 fL Mean Corpuscular Hemoglobin 29.1 28.0-32.0 pg Mean Corpuscular Hemoglobin Concent 32.5 32.0-36.0 g/dL Red Cell Distribution Width 14.9 H 11.8-14.3 % Platelet Count 159 140-450 10^3/uL Mean Platelet Volume 8.9 6.9-10.8 fL Neutrophils (%) (Auto) 64.6 37.0-80.0 % Lymphocytes (%) (Auto) 22.8 10.0-50.0 % Monocytes (%) (Auto) 8.3 0.0-12.0 % Eosinophils (%) (Auto) 3.2 0.0-7.0 % Basophils (%) (Auto) 1.1 0.0-2.0 % Neutrophils # (Auto) 7.2 1.6-8.6 10 ^3/uL Lymphocytes # (Auto) 2.5 0.4-5.4 10 ^3/uL Monocytes # (Auto) 0.9 0-1.3 10 ^3/uL Eosinophils # (Auto) 0.4 0-0.8 10 ^3/uL Basophils # (Auto) 0.1 0-0.2 10 ^3/uL Nucleated Red Blood Cells 0.0 % Sodium Level 140 136-145 mmol/L Potassium Level 4.2 3.5-5.1 mmol/L Chloride Level 106 98-107 mmol/L Carbon Dioxide Level 25 20-31 mmol/L Anion Gap 9 5-15 Blood Urea Nitrogen 30 H 9-23 mg/dL Creatinine 0.86 0.550-1.02 mg/dL Glomerular Filtration Rate Calc 70 >90 mL/min BUN/Creatinine Ratio 34.9 H 10.0-20.0 Serum Glucose 103 74-106 mg/dL Calcium Level 8.8 8.7-10.4 mg/dL Troponin I High Sensitivity < 3 L </=34 ng/L Urine Color Light-yellow Yellow Urine Clarity Clear Clear Urine pH 5.0 5.0-9.0 Urine Specific Elmer 1.011 1.001-1.035 Urine Protein Negative Negative Urine Ketones Negative Negative Urine Blood Negative Negative /uL Urine Nitrite Negative Negative Urine Bilirubin Negative Negative Urine Urobilinogen Normal Negative mg/dL Urine Leukocyte Esterase Negative Negative /uL Urine RBC 1 0 - 4 /hpf Urine Microscopic WBC 1 0-5 /HPF Urine Squamous Epithelial Cells None seen <5 /hpf Urine Bacteria Few H None Seen /hpf Urine Glucose Normal Normal mg/dL PATIENT: MICHELLE VILLARREAL OACCT: [id number] UNIT: [id number] : 1950 LOC: ER ROOM / BED: / AGE / SEX: 74 / F ADM STATUS: REG ER SERVICE 55 ORDERING PHYSICIAN: GAMALIEL CAPUTO MD PROCEDURE(s): HWOCT - HEAD WITHOUT CONTRAST REASON: fall ORDER NUMBER(s): [id number], ACCESSION NUMBER(s): [id number] COMPUTERIZED TOMOGRAPHY OF THE HEAD WITHOUT CONTRAST REASON FOR STUDY: fall COMPARISON: CT HEAD WITHOUT CONTRAST on DOS: 07/13/24, CT HEAD WITHOUT CONTRAST on DOS: 11/23/23, CT HEAD WITHOUT CONTRAST on DOS: 04/17/23 TECHNIQUE: Helical tomographic scans were obtained through the brain. 2-D coronal and sagittal reformatted images are provided. Radiation optimization: All CT scans at this facility use at least one of these dose optimization techniques: Automated exposure control mA and/or kV adjustment per patient size (includes targeted exams where dose is matched to clinical indication) or iterative reconstruction. RADIATION DOSE: CTDI: 52 mGy DLP: 916 mGy-cm FINDINGS: No suspicious intracranial hyperdensity to suggest acute blood. There is no mass effect nor midline shift. There is severe generalized volume loss with compensatory enlargement of the CSF spaces. There is no hydrocephalus. The suprasellar cistern is intact. There are scattered periventricular and deep white matter hypodensities that are most consistent with chronic microangiopathic changes. The calvarium is intact. The visualized mastoid air cells and paranasal sinuses are clear. The patient is status post bilateral lens surgeries. There is severe degenerative change at the temporomandibular joints. IMPRESSION: No acute intracranial abnormality. Severe generalized volume loss with chronic small vessel ischemic change. ORDERING PHYSICIAN: GAMALIEL CAPUTO MD PROCEDURE(s): LKNE2 - L KNEE 2V XRAY REASON: fall ORDER NUMBER(s): [id number], ACCESSION NUMBER(s): [id number] CLINICAL INDICATION: fall TECHNIQUE: 2 radiographic views of the left knee were obtained. COMPARISON: XY L KNEE 3V XRAY on DOS: 05/29/23 FINDINGS/IMPRESSION: There is no evidence of acute fracture or dislocation. Mild tricompartmental degenerative changes of the knee. The alignment is anatomical. There is no radiopaque foreign body. Chondrocalcinosis of the knee. Vascular calcification is noted. ORDERING PHYSICIAN: GAMALIEL CAPUTO MD PROCEDURE(s): LELCT - CT L ELBOW WO CONTRAST REASON: fall ORDER NUMBER(s): [id number], ACCESSION NUMBER(s): [id number] EXAM: CT CT L ELBOW WO CONTRAST HISTORY: fall COMPARISON: None TECHNIQUE: Noncontrast axial CT images of the left elbow were performed. Sagittal and coronal reformatted images were obtained. This CT exam was performed using one or more of the following dose reduction techniques: Automated exposure control, adjustment of the mA and/or kV according to patient size, or use of iterative reconstruction technique. 3D volume rendering images were obtained of the left elbow. CT Dose: CTDI volume is 24.08 mGy. Dose-length product is 511.88 mGy*cm. FINDINGS: There is bony demineralization. There is chondrocalcinosis of the left elbow joint. There is a comminuted mildly displaced fracture of the olecranon process with extension into the trochlear ulnar joint. There is impacted fracture of the radial head/ neck. There is moderate radial and proximal avulsion of the capitellum from the distal humerus, age-indeterminate. Degenerative changes of the left shoulder with osteophyte formation. There is soft tissue swelling about the left elbow and Proximal left forearm. There is soft tissue swelling over the olecranon bursa likely olecranon bursitis. There is a left elbow joint effusion. IMPRESSION: 1. Comminuted mildly displaced fracture of the olecranon process with fracture extension into the trochlear ulnar joint. 2. Impacted fracture of the radial head/neck. 3. Moderate radial and proximal Avulsion of the capitellum from the distal humerus, age indeterminate. 4. Moderate soft tissue swelling about the left elbow and proximal left forearm. 5. Mild olecranon bursitis. 6. Small left elbow joint effusion. 7. Chondrocalcinosis of the left elbow joint. SEPSIS Sepsis Screen Date sepsis recognized/suspect: Aug 19, 2025 Time Sepsis recognized/suspect: 1801 Recent Procedure: No On Antibiotic Therapy: No Respiratory Rate >20: Yes Heart Rate >90: No Temp<36 C (96.8 F) or >38.3 C: No SBP <90 or MAP <65 mmHG: No New Acute Mental Status Change: No Is the patient on CPAP, BIPAP,: No Physician Orders Head Without Contrast (08/19/25 16:56) Ct L Elbow Wo Contrast (08/19/25 16:56) L Knee 2v Xray (08/19/25 16:56) Aspirin Chewable Tablet (08/20/25 10:00) Atorvastatin (Lipitor) (08/19/25 22:00) Levothyroxine Tablet (Synthroid Tablet) (08/20/25 06:00) Glucose Blood (Accu-Chek Comfort Curve T (08/19/25 22:00) Insulin R (Human) (Insulin R) (08/19/25 22:00) Dextrose 50% Syringe (08/19/25 21:45) Allergies (08/19/25 21:42) Code Status (08/19/25 21:42) Sodium Chloride Lock (Saline Lock Ns) (08/19/25 22:00) Oxygen Per Hour (08/19/25 21:42) Hydrocodone-Acet 5/325mg Tab ([place] 5/32 (08/19/25 21:45) Ondansetron Hcl (Zofran) (08/19/25 21:45) Docusate Sodium Capsule (Colace Capsule) (08/19/25 21:45) Fall Risk Precautions In Place QSHIFT (08/19/25 21:42) Complete Blood Count (08/20/25 04:00) Comprehensive Metabolic Panel (08/20/25 04:00) Cardiac Diet-2gna,Lofat,Lochol (08/20/25 Breakfast) Condition: Serious (08/19/25 21:42) Acetaminophen Tablet (Tylenol Tablet) (08/19/25 21:45) Maintain Bed Rest (08/19/25 21:42) Sequential Compression Device (08/19/25 ) * Orthopedic Consult (08/19/25 22:41) Admit (08/19/25 22:41) Nitroglycerin Sublingual (Ntrostat Subli (08/19/25 22:45) Morphine Sulfate Injection (08/19/25 22:45) Stat Ekg For Chest Pain (08/19/25 22:41) Notify Md Of Changes From Base (08/19/25 22:41) Stained Glass Joiner For 24 Hours (08/19/25 22:41) Emergency Dysrhythmia Protocol (08/19/25 22:41) Rhythm Strips Once Every Shift (08/19/25 22:41) Oxygen By Nasal Cannula (08/19/25 22:41) Vital Signs Date Time Temp Pulse Resp B/P (MAP) Pulse Ox O2 Delivery O2 Flow Rate FiO2 08/19/25 22:27 74 08/19/25 18:04 97.8 86 18 122/56 (78) 97 97.8 08/19/25 15:26 97.8 94 20 130/78 91 97.8 Laboratory Tests Test 08/19/25 17:44 White Blood Count 11.1 10^3/uL (4.4-10.8) H Medications Medications Dose Ordered Sig/Page Route Start Time Stop Time Status Last Admin Dose Admin Acetaminophen/ Hydrocodone Bitart 1 tab ONCE ONCE PO 08/19/25 18:15 08/19/25 18:16 DC 08/19/25 18:49 1 TAB Assessment/Plan Assessment/Plan Fall with injury Head injury Knee strain Fracture of radial head, left, closed Hematoma of left elbow Unspecified injury of head, initial encounter Generalized weakness Plan 1. Admit to telemetry unit 2. Breathing treatment 3. Pain control management 4. Management of fluids and electrolytes 5. Consultation for orthopedic 6. Diagnostic tests left elbow CT 7. DVT prophylaxis-on aspirin 8. Repeat labs CBC, CMP in a.m. 9. Continue with current medical management 10. Treatment plan discussed with patient and RN. Patient verbalized understanding. Plan discussed with: Patient, Other (RN) My Orders Orders - DAMON CONRAD DNP Procedure Category Date Status Time Aspirin Chewable PHA 08/20/25 In Process Tablet 10:00 Atorvastatin (Lipitor) PHA 08/19/25 In Process 22:00 Levothyroxine Tablet PHA 08/20/25 In Process (Synthroid Tablet) 06:00 Glucose Blood PHA 08/19/25 In Process (Accu-Chek Comfort 22:00 Insulin R (Human) PHA 08/19/25 In Process (Insulin R) 22:00 Dextrose 50% Syringe PHA 08/19/25 In Process 21:45 Allergies AAMIR 08/19/25 In Process 21:42 Code Status CODE 08/19/25 Transmitted 21:42 Sodium Chloride Lock PHA 08/19/25 In Process (Saline Lock Ns) 22:00 Oxygen Per Hour RT 08/19/25 Transmitted 21:42 Hydrocodone-Acet PHA 08/19/25 In Process 5/325mg Tab ([place] 21:45 Ondansetron Hcl PHA 08/19/25 In Process (Zofran) 21:45 Docusate Sodium PHA 08/19/25 In Process Capsule (Colace 21:45 Fall Risk Precautions AMAIR 08/19/[address] 21:42 Complete Blood Count LAB 08/20/25 Verified 04:00 Comprehensive LAB 08/20/25 Verified Metabolic Panel 04:00 Cardiac DIET 08/20/25 Transmitted Diet-2gna,Lofat,Lochol Breakfast Condition: Serious AAMIR 08/19/25 In Process 21:42 Acetaminophen Tablet PHA 08/19/25 In Process (Tylenol Tablet) 21:45 Maintain Bed Rest AAMIR 08/19/25 In Process 21:42 Sequential AAMIR 08/19/25 In Process Compression Device * Orthopedic Consult CONS 08/19/25 Transmitted 22:41 Admit ADMIT 08/19/25 Transmitted 22:41 Nitroglycerin [facility] 08/19/25 Logged Sublingual (Ntrostat 22:45 Morphine Sulfate [facility] 08/19/25 Logged Injection 22:45 Stat Ekg For Chest [facility] 08/19/25 In Process Pain 22:41 Notify Md Of Changes [facility] 08/19/25 In Process From Base 22:41 Stained Glass Joiner For [facility] 08/19/25 In Process 24 Hours 22:41 Emergency Dysrhythmia [facility] 08/19/25 In Process Protocol 22:41 Rhythm Strips Once [facility] 08/19/25 In Process Every Shift 22:41 Oxygen By Nasal RT 08/19/25 Transmitted Cannula 22:41 Problem List: (1) Fall with injury (2) Knee strain (3) Head injury (4) Fracture of radial head, left, closed (5) Hematoma of left elbow (6) Unspecified injury of head, initial encounter (7) Generalized weakness Date of Service: Aug 19, 2025 Billing Provider: DAMON CONRAD DNP Common Visit Codes: [id number] INP/OBS CARE (HIGH) DAMON CONRAD DNP Aug 19, 2025 22:45
[2025-08-19] MEDS: ATORVASTATIN 20 MG TAB PO SCH (23:59)
[2025-08-19] MEDS: ACETAMINOPHEN 325 MG TAB PO PRN (23:59)
[2025-08-20 06:01] VITALS: BP 147/63; PULSE 76; RESP 18; TEMP 98; O2SAT 99
[2025-08-20] MEDS: LEVOTHYROXINE SODIUM 50 MCG TAB PO SCH (07:16)
[2025-08-20] MEDS: HYDROcodone-ACET 5/325MG TAB PO PRN (07:17)
[2025-08-20] MEDS ORDERED: ONDANSETRON HCL 4 MG/2 ML VIAL IV ONE (07:45)
[2025-08-20] MEDS ORDERED: MORPHINE SULFATE 4 MG/ML SYR/VIAL IV ONE (07:45)
[2025-08-20 08:01] VITALS: BP 123/44; PULSE 77; RESP 16; TEMP 98; O2SAT 98
== END 2025-08-20 08:08 | disposition short-term general hospital (02) ==
LOC: ER 15:24 → OVERFLOW 22:41 → UNDOADMIN 22:41 → OVERFLOW 22:44 → ER 08-20 08:08
DX: S52.122A Displaced fracture of head of left radius, initial encounter for closed fracture (principal); S86.919A Strain of unspecified muscle(s) and tendon(s) at lower leg level, unspecified leg, initial encounter; S50.02XA Contusion of left elbow, initial encounter; S00.93XA Contusion of unspecified part of head, initial encounter; S80.02XA Contusion of left knee, initial encounter; I11.0 Hypertensive heart disease with heart failure; E03.9 Hypothyroidism, unspecified; E11.9 Type 2 diabetes mellitus without complications; I25.2 Old myocardial infarction; M17.10 Unilateral primary osteoarthritis, unspecified knee; Z79.82 Long term (current) use of aspirin; Z79.890 Hormone replacement therapy; Z79.899 Other long term (current) drug therapy; Z86.73 Personal history of transient ischemic attack (TIA), and cerebral infarction without residual deficits; Z90.49 Acquired absence of other specified parts of digestive tract; Z88.1 Allergy status to other antibiotic agents; Z88.5 Allergy status to narcotic agent; W01.198A Fall on same level from slipping, tripping and stumbling with subsequent striking against other object, initial encounter; Y93.89 Activity, other specified; Y92.000 Kitchen of unspecified non-institutional (private) residence as the place of occurrence of the external cause; Y99.8 Other external cause status
CPT/HCPCS: 36415; 70450; 73200; 73560; 80048; 81001; 82947; 82962; 84484; 85025; G0378